=== PATIENT | female | born 1930 | race Hispanic/Latino ===

== ENCOUNTER 2020-03-24 23:08 | Emergency (ER) | payer MEDICARE ==
[~2020-03-24] VITALS: Ht 160 cm; Wt 59.9 kg
[~2020-03-24 23:08] MED LIST: COZAAR25 MG PO; DICYCLOMINE HCL10 MG PO; LOMOTIL TABLET1 EACH PO; LOTRONEX0.5 MG PO; TIROSINT100 MCG PO
--- NOTE | 2020-03-25 00:04 | Diagnostic Imaging Report ---
EXAMINATION: Head CT HISTORY: Status post fall, trauma, pain COMPARISON: None. TECHNIQUE: Helical axial images of the head were obtained. Reformatted coronal and sagittal images from the axial data. Dose modulation, iterative reconstruction, and/or weight based adjustment of the mA/kV was utilized to reduce the radiation dose to as low as reasonably achievable. Image quality: Motion/streaking artifact limits the evaluation of the skull base and posterior cranial fossa. FINDINGS: Parenchyma: 1. Mild periventricular white matter hypodensities, most nonspecific chronic microvascular ischemic changes. 2. No mass or hemorrhage. No CT evidence of acute territorial vascular insult. Extra-axial spaces:No abnormal density. No extra-axial fluid collections Brain volume: Normal for age. Ventricles: No hydrocephalus or displacement. Arteries: No density suggestive of thrombus. Dural sinuses: No abnormal density. Foramen magnum: No mass, Chiari malformation, or basilar invagination. Sella: No obvious mass. Paranasal/mastoid sinuses: Imaged portions unremarkable. Skull/Scalp: No lytic or blastic lesions. Minimal right forehead soft tissue swelling, no underlying fractures. Partially visualized radiopaque densities in the bilateral lateral globes. IMPRESSION: 1. No acute post traumatic intracranial abnormality, particularly no hemorrhage. 2. Mild white matter chronic microvascular ischemic changes. 3. Minimal right forehead soft tissue swelling without underlying fractures Signed by: Dr. Fany Rosario M.D. on 03/25/2020 12:01 AM
--- NOTE | 2020-03-25 00:15 | Emergency Department Note ---
History of Present Illnes History of Present Illness Chief Complaint: Head/Face Trauma History of Present Illness This is a 89 year old female states she tripped and fell while using her walker at home. Patient denies losing consiousness or being on blood thinners at this time. Patient noted to have laceration to her nose and swelling to lip. No distress noted. No active bleeding at this time. . Historian: Patient Arrival Mode: Car Onset (how long ago): hour(s) (1) Location: face, right knee Quality: fell, laceration to nose, abrasion to right knee Radiation: Reports non-radiation Severity: moderate Onset quality: sudden Duration (how long): hour(s) (1) Timing of current episode: constant Progression: unchanged Chronicity: new Context: Reports trauma/injury (tripped and fell) Relieving factors: none Exacerbating factors: none Associated symptoms: Reports denies other symptoms Treatments prior to arrival: none Past Medical/Family History Physician Review I have reviewed the patient's past medical and family history. Any updates have been documented here. Past Medical History Recent Fever: No Clinical Suspicion of Infectio: No New/Unexplained Change in Ment: No Past Medical History: Hypertension, Hyperlipedemia Other Medical History: SPINAL STENOSIS diverticulitis, ibs neuropathy Other Surgery: abdominal mesh x 3 Social History Smoking Cessation: Never Smoker Counseling Performed: Yes Any Illegal Drug Use: No Family History Family history of heart diseas: No Other family history htn Other Last Tetanus: utd Review of Systems Review of Systems Constitutional: Reports no symptoms EENTM: Reports no symptoms Cardiovascular: Reports no symptoms Respiratory: Reports no symptoms Gastrointestinal: Reports no symptoms Genitourinary: Reports no symptoms Musculoskeletal: Reports as per HPI Integumentary: Reports as per HPI Neurological: Reports no symptoms Psychological: Reports no symptoms Endocrine: Reports no symptoms Hematological/Lymphatic: Reports no symptoms Physical Exam Related Data Allergies: Coded Allergies: Penicillins (Verified Allergy, Severe, 05/07/08) Sulfa (Sulfonamide Antibiotics) (Verified Allergy, Severe, 05/07/08) nitrofurantoin (Verified Allergy, Severe, 05/07/08) levofloxacin (Verified Allergy, Intermediate, 06/15/17) acetaminophen (Verified Allergy, Mild, 05/07/08) hydrocodone (Verified Allergy, Mild, 05/07/08) Triage Vital Signs Vital Signs Date Time Temp Pulse Resp B/P (MAP) Pulse Ox O2 Delivery O2 Flow Rate FiO2 03/24/20 23:31 98.1 82 20 176/75 100 Room Air Vital signs reviewed: Yes Physical Exam CONSTITUTIONAL Constitutional: Present well-developed, Present well-nourished; Absent distressed HENT HENT: Present normocephalic, Present oropharynx clear/moist, Present nose normal, Present other (contusion to right forehead and upper lip) HENT L/R: Present left ext ear normal, Present right ext ear normal EYES Eyes: Reports PERRL, Reports conjunctivae normal NECK Neck: Present ROM normal PULMONARY Pulmonary: Present effort normal, Present breath sounds normal CARDIOVASCULAR Cardiovascular: Present regular rhythm, Present heart sounds normal, Present capillary refill normal, Present normal rate GASTROINTESTINAL Abdominal: Present soft, Present nontender, Present bowel sounds normal GENITOURINARY Genitourinary: Present exam deferred SKIN Skin: Present warm, Present dry, Present other (superficial laceration to bridge of nose, 1 cm in length, ) MUSCULOSKELETAL Musculoskeletal: Present ROM normal, Present other (abraions to right knee, mild swelling, rom normal) NEUROLOGICAL Neurological: Present alert, Present oriented x 3, Present no gross motor or sensory deficits PSYCHOLOGICAL Psychological: Present mood/affect normal, Present judgement normal Results Imaging Imaging results reviewed: Yes Impressions Procedure: [id number] CT/CT MAX FAC/PARANAS WO Exam Date: 03/24/20 Exam Time: 2340 REPORT STATUS: Signed EXAMINATION: CT of the face HISTORY: Status post fall, facial trauma, pain. COMPARISON: None available TECHNIQUE: Multidetector helical axial images were acquired through the face without contrast and were reconstructed in bone and soft tissue algorithms. Images were viewed in multiplanar format. Dose modulation, iterative reconstruction, and/or weight based adjustment of the mA/kV was utilized to reduce the radiation dose to as low as reasonably achievable. FINDINGS: Bones: No acute displaced fractures Facial soft tissues: Mild right forehead soft tissue swelling Paranasal sinuses and drainage pathways: The frontal, ethmoidal, sphenoid and maxillary sinuses are clear. The ostiomeatal units, fronto-nasal and spheno-ethmoidal recesses are clear. Orbits contents: Small calcifications in the lateral aspect of both globes may represent senile scleral calcifications. Nasal septum: Midline. Anatomic variations: No significant anatomic variations. Dentition: No acute abnormality of the visualized teeth. IMPRESSION: No acute facial fractures. Signed by: Dr. Fany Groves M.D. on 03/25/2020 12:17 AM Procedure: [id number] CT/CT BRAIN WO Exam Date: 03/24/20 Exam Time: 2339 REPORT STATUS: Signed EXAMINATION: Head CT HISTORY: Status post fall, trauma, pain COMPARISON: None. TECHNIQUE: Helical axial images of the head were obtained. Reformatted coronal and sagittal images from the axial data. Dose modulation, iterative reconstruction, and/or weight based adjustment of the mA/kV was utilized to reduce the radiation dose to as low as reasonably achievable. Image quality: Motion/streaking artifact limits the evaluation of the skull base and posterior cranial fossa. FINDINGS: Parenchyma: 1. Mild periventricular white matter hypodensities, most nonspecific chronic microvascular ischemic changes. 2. No mass or hemorrhage. No CT evidence of acute territorial vascular insult. Extra-axial spaces:No abnormal density. No extra-axial fluid collections Brain volume: Normal for age. Ventricles: No hydrocephalus or displacement. Arteries: No density suggestive of thrombus. Dural sinuses: No abnormal density. Foramen magnum: No mass, Chiari malformation, or basilar invagination. Sella: No obvious mass. Paranasal/mastoid sinuses: Imaged portions unremarkable. Skull/Scalp: No lytic or blastic lesions. Minimal right forehead soft tissue swelling, no underlying fractures. Partially visualized radiopaque densities in the bilateral lateral globes. IMPRESSION: 1. No acute post traumatic intracranial abnormality, particularly no hemorrhage. 2. Mild white matter chronic microvascular ischemic changes. 3. Minimal right forehead soft tissue swelling without underlying fractures Signed by: Dr. Fany Groves M.D. on 03/25/2020 12:01 AM Dictated By: FANY GROVES MD 0001 Transcribed By: ADRIANO on 03/25/20 0001 COPY TO: LORE CORONADO MD~ Procedure: [id number] CT/CT CERVICAL SPINE WO Exam Date: 03/24/20 Exam Time: 2339 REPORT STATUS: Signed EXAMINATION: CT of the cervical spine HISTORY: Status post fall, pain COMPARISON: None available TECHNIQUE: Multidetector helical axial images were obtained without contrast from the foramen magnum to T1. The images were reconstructed using bone and soft tissue algorithms and were viewed in axial, sagittal and coronal planes. Dose modulation, iterative reconstruction, and/or weight based adjustment of the mA/kV was utilized to reduce the radiation dose to as low as reasonably achievable. FINDINGS: Alignment: Normal alignment and lordosis Soft tissues: Normal Vertebrae: Normal height and density. No acute fracture, infection or neoplasm Degenerative changes: C1-C2: Ossification of the atlantodental ligaments, no significant stenosis. C2-C3: Bilateral facet arthrosis C3-C4: Prominent facet arthrosis mainly on the left. Moderate left foraminal stenosis. C4-C5: Prominent facet arthrosis and mild uncovertebral arthrosis on the left. Moderate left foraminal stenosis. C5-C6: Disc osteophyte complex formation, bilateral uncovertebral and facet arthrosis worse on the left. Moderate right and severe left foraminal stenosis minimal canal narrowing. C6-C7: Fusion of the posterior elements on the left. No significant canal or foraminal stenosis. C7-T1: Fusion of the posterior elements of the lumbar. No significant stenosis. IMPRESSION: 1. No acute cervical spine postraumatic abnormalities. 2. Multilevel chronic degenerative changes of the tube above. Note: Acute postraumatic spinal cord, vascular or ligamentous injuries cannot adequately be assessed by CT. Signed by: Dr. Fany Groves M.D. on 03/25/2020 12:23 AM Dictated By: FANY GROVES MD Transcribed By: ADRIANO on 03/25/2022 COPY TO: LORE CORONADO MD~ Procedures Laceration Laceration: Laceration 1 Site: face (nose) Size (cm): 1 Description: linear Depth: simple, single layer Local anesthesia: lidocaine 1% Amount of anesthesia (mL): 1 Pre-repair: wound exposed, irrigated extensively, deep structures intact Skin layer closed with: other (prolene) Size (cm): 4-0 Technique: simple, interrupted Assessment & Plan Medical Decision Making [facility] pt s/p fall with injury to face and right knee ct brain, ct cervical spine, ct face, right knee xray ordered to eval for fractures, intracranial abnormality/injury laceration of nose repaired pt discharge home, motrin/tylenol for pain have sutures removed in 10 days Assessment & Plan Final Impression: (1) Contusion of head (2) Contusion, lip (3) Laceration of nose (4) Abrasion of right knee Depart Disposition: HOME, SELF-CARE Last Vital Signs Date Time Temp Pulse Resp B/P (MAP) Pulse Ox O2 Delivery O2 Flow Rate FiO2 03/24/20 23:31 98.1 82 20 176/75 100 Room Air Home Meds Reported Medications Losartan Potassium (COZAAR) 25 Mg Tablet, 1 TAB PO DAILY 11/25/12 Levothyroxine Sodium (TIROSINT) 100 Mcg Capsule, 1 TAB PO DAILY 11/25/12 Diphenoxylate Hcl/Atropine (LOMOTIL TABLET) 1 Each Tablet, 1 TAB PO TID 11/25/12 Dicyclomine Hcl (DICYCLOMINE HCL) 10 Mg Capsule, 1 TAB PO TID 11/25/12 LORE CORONADO MD Mar 25, 2020 00:14
--- NOTE | 2020-03-25 00:20 | Diagnostic Imaging Report ---
EXAMINATION: CT of the face HISTORY: Status post fall, facial trauma, pain. COMPARISON: None available TECHNIQUE: Multidetector helical axial images were acquired through the face without contrast and were reconstructed in bone and soft tissue algorithms. Images were viewed in multiplanar format. Dose modulation, iterative reconstruction, and/or weight based adjustment of the mA/kV was utilized to reduce the radiation dose to as low as reasonably achievable. FINDINGS: Bones: No acute displaced fractures Facial soft tissues: Mild right forehead soft tissue swelling Paranasal sinuses and drainage pathways: The frontal, ethmoidal, sphenoid and maxillary sinuses are clear. The ostiomeatal units, fronto-nasal and spheno-ethmoidal recesses are clear. Orbits contents: Small calcifications in the lateral aspect of both globes may represent senile scleral calcifications. Nasal septum: Midline. Anatomic variations: No significant anatomic variations. Dentition: No acute abnormality of the visualized teeth. IMPRESSION: No acute facial fractures. Signed by: Dr. Fany Rosario M.D. on 03/25/2020 12:17 AM
--- NOTE | 2020-03-25 00:27 | Diagnostic Imaging Report ---
EXAMINATION: CT of the cervical spine HISTORY: Status post fall, pain COMPARISON: None available TECHNIQUE: Multidetector helical axial images were obtained without contrast from the foramen magnum to T1. The images were reconstructed using bone and soft tissue algorithms and were viewed in axial, sagittal and coronal planes. Dose modulation, iterative reconstruction, and/or weight based adjustment of the mA/kV was utilized to reduce the radiation dose to as low as reasonably achievable. FINDINGS: Alignment: Normal alignment and lordosis Soft tissues: Normal Vertebrae: Normal height and density. No acute fracture, infection or neoplasm Degenerative changes: C1-C2: Ossification of the atlantodental ligaments, no significant stenosis. C2-C3: Bilateral facet arthrosis C3-C4: Prominent facet arthrosis mainly on the left. Moderate left foraminal stenosis. C4-C5: Prominent facet arthrosis and mild uncovertebral arthrosis on the left. Moderate left foraminal stenosis. C5-C6: Disc osteophyte complex formation, bilateral uncovertebral and facet arthrosis worse on the left. Moderate right and severe left foraminal stenosis minimal canal narrowing. C6-C7: Fusion of the posterior elements on the left. No significant canal or foraminal stenosis. C7-T1: Fusion of the posterior elements of the lumbar. No significant stenosis. IMPRESSION: 1. No acute cervical spine postraumatic abnormalities. 2. Multilevel chronic degenerative changes of the tube above. Note: Acute postraumatic spinal cord, vascular or ligamentous injuries cannot adequately be assessed by CT. Signed by: Dr. Fany Rosario M.D. on 03/25/2020 12:23 AM
[2020-03-25] MEDS ORDERED: LIDOCAINE 1% 5ML-MPF INJ ONE (00:45)
[2020-03-25] MEDS ORDERED: LIDOCAINE HCL 1% LOCAL INJ 20 ML VIAL ONE (00:49)
[2020-03-25] MEDS ORDERED: BACITRACIN ZINC 0.9GM TP ONE (01:00)
--- NOTE | 2020-03-25 01:09 | Diagnostic Imaging Report ---
X-ray right knee 3 views HISTORY: Pain. Fall COMPARISON: None available. FINDINGS: Bones: No acute displaced fracture. Osseous alignment is within normal limits. Total right knee metallic arthroplasty hardware intact. Joints: The joint spaces are well-maintained. Soft tissues: Mild subcutaneous edema about the knee. Vascular calcifications. IMPRESSION: No acute radiographic osseous abnormality. Mild subcutaneous edema about the knee. Total right knee metallic arthroplasty hardware intact. Signed by: Edvin Martinez DO on 03/25/2020 1:06 AM
[2020-03-25 01:11] VITALS: BP 152/81
--- OUTSIDE RECORDS SUMMARY | 2020-03-27 19:22 | XMS REPORT ---
Author Author Shanique Morelos Organization [employer] Address Unknown Phone Unavailable Care Team Providers Care Optometrist/Practice Owner Name Role Phone Anju Morelos Unavailable Allergies, Adverse Reactions, Alerts Substance Reaction Event Type MICRODASTIN Info Not Available Non Drug Allergy SULFA DRUGS Info Not Available Non Drug Allergy PNC Info Not Available Non Drug Allergy Problems Problem Type Condition Code Onset Dates Condition Statu s Assessment Mixed hyperlipidemia E78.2 Active Assessment Annual physical exam Z00.00 Active Assessment Essential hypertension I10 Activ e Problem Mixed hyperlipidemia E78.2 Active Problem Essential hypertension I10 Activ e Problem Arthritis M19.90 Active Problem Other irritable bowel syndrome K58.8 Active Problem 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 Active Problem Acquired hypothyroidism E03.9 Acti ve Problem Gastroesophageal reflux disease without esophagitis K2 1.9 Active Assessment Arthritis M19.90 Active Assessment Other irritable bowel syndrome K58.8 Active Assessment 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 Assessment Acquired hypothyroidism E03.9 Acti ve Assessment Gastroesophageal reflux disease without esophagitis K2 1.9 Active Medications Medication Code System Code Instructions Start Date End Date Status Dosage Gabapentin ND 14750955283 300 MG Orally Once a day Active 1 capsule Levothyroxine Sodium ND 37939853605 88 MCG Orally daily Active 1 tablet Rosuvastatin Calcium ND 91503614884 20 MG Orally Once a day Active 1 tablet Bentyl ND 67745171791 10 MG Orally Four times a day Active 2 capsules Calcium & Magnesium Carbonates NDC 0 A ctive not defined Vitamin E ND 70612571950 100 UNIT Orally Once a day Active 1 capsule Losartan Potassium ND 23144115736 25 MG Orally Once a day Active 1 tablet Flexeril NDC 0 10 MG Orally daily Active 1 ta blet as needed B Complete ND 64329984199 - Orally Active not def ined Vital Signs Date/Time: May 02, 2018 BMI 25.56 Index Weight 144.3 lbs Height 63 in Temperature 97.2 F Cardiac Monitoring Heart Rate 82 /min Blood Pressure Diastolic 78 mm Hg Blood Pressure Systolic 161 mm Hg Results No Known Results Summary Purpose [employer] Submission
--- OUTSIDE RECORDS SUMMARY | 2020-03-27 19:22 | XMS REPORT ---
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 Problem Other insomnia G47.09 Active Problem Stress incontinence of urine N39.3 Active Problem Renal calculus, right N20.0 Active Problem Generalized abdominal pain R10.84 A ctive Problem Mixed hyperlipidemia E78.2 Active Problem Arthritis M19.90 Active Assessment Essential hypertension I10 Activ e Problem Other irritable bowel syndrome K58.8 Active Problem Gastroesophageal reflux disease without esophagitis K2 1.9 Active Medications Medication Code System Code Instructions Start Date End Date Status Dosage Losartan Potassium [facility] 25809690667 25 MG Orally Once a day Active 1 tablet Results No Known Results Summary Purpose [employer] Submission
--- OUTSIDE RECORDS SUMMARY | 2020-03-27 19:22 | XMS REPORT ---
Author Author Shanique Morelos Organization [employer] Address Unknown Phone Unavailable Care Team Providers Care Income Tax Return Preparer Name Role Phone Jethro Anju Unavailable Allergies, Adverse Reactions, Alerts Substance Reaction Event Type PNC Info Not Available Non Drug Allergy MICRODASTIN Info Not Available Non Drug Allergy SULFA DRUGS Info Not Available Non Drug Allergy Problems Problem Type Condition Code Onset Dates Condition Statu s Problem Gastroesophageal reflux disease without esophagitis K2 1.9 Active Problem Essential hypertension I10 Activ e Problem Acquired hypothyroidism E03.9 Acti ve Problem Renal calculus, right N20.0 Active Assessment Arthritis M19.90 Active Problem Generalized abdominal pain R10.84 A ctive Assessment Acquired hypothyroidism E03.9 Acti ve Assessment Stress incontinence of urine N39.3 Active Problem Fatty liver K76.0 Active Problem Arthritis M19.90 Active Problem Mixed hyperlipidemia E78.2 Active Problem Other insomnia G47.09 Active Problem Stress incontinence of urine N39.3 Active Assessment Mixed hyperlipidemia E78.2 Active Assessment Essential hypertension I10 Activ e Assessment Renal calculus, right N20.0 Active Assessment 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 Assessment Gastroesophageal reflux disease without esophagitis K2 1.9 Active Assessment Fatty liver K76.0 Active Problem 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 Active Assessment Other irritable bowel syndrome K58.8 Active Problem Other irritable bowel syndrome K58.8 Active Medications Medication Code System Code Instructions Start Date End Date Status Dosage Flexeril NDC 0 10 MG Orally daily Active 1 ta blet as needed Bentyl ND 03506104633 10 MG Orally Four times a day Active 2 capsules Oxybutynin Chloride ER ND 10933172804 5 MG Orally Once a day Active 1 tablet Rosuvastatin Calcium ND 58051204983 10 MG Orally Once a day Active 1 tablet B Complete ND 68212054740 - Orally Active not def ined Vitamin E ND 25887350479 100 UNIT Orally Once a day Active 1 capsule Losartan Potassium ND 64837078552 25 MG Orally Once a day Active 1 tablet Gabapentin ND 44516554361 300 MG Orally three times a day (tid) Active 1 capsule Levothyroxine Sodium [facility] 79848169149 88 MCG Orally daily Active 1 tablet Calcium & Magnesium Carbonates NDC 0 A ctive not defined Pantoprazole Sodium [facility] 00740743441 40 mg Orally Once a day Aug 06, 2018 Active 1 tablet Vital Signs Date/Time: Aug 06, 2018 BMI 26.78 Index Weight 151.2 lbs Height 63 in Temperature 98.4 F Cardiac Monitoring Heart Rate 86 /min Blood Pressure Diastolic 71 mm Hg Blood Pressure Systolic 125 mm Hg Results No Known Results Summary Purpose [employer] Submission
--- OUTSIDE RECORDS SUMMARY | 2020-03-27 19:22 | XMS REPORT ---
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 Active Assessment Arthritis M19.90 Active Problem Other insomnia G47.09 Active Problem Stress incontinence of urine N39.3 Active Problem Renal calculus, right N20.0 Active Problem Generalized abdominal pain R10.84 A ctive Assessment Gastroesophageal reflux disease without esophagitis K2 1.9 Active Assessment Essential hypertension I10 Activ e Assessment Fatty liver K76.0 Active Assessment Other irritable bowel syndrome K58.8 Active Problem Mixed hyperlipidemia E78.2 Active Problem Arthritis M19.90 Active Assessment Acquired hypothyroidism E03.9 Acti ve Medications Medication Code System Code Instructions Start Date End Date Status Dosage Pregabalin NDC 46141009108 50 mg Orally once every night Sep 02 0 Active 1 capsule Vitamin E NDC 49840266572 100 UNIT Orally Once a day Active 1 capsule Lidocaine HCl NDC 0 5 % Externally Twice a day as needed Active as directed Aleve NDC 06667205057 220 MG Orally every 12 hrs A ctive 1 tablet with food or milk as needed Losartan Potassium ND 95887145658 25 MG Orally Once a day Active 1 tablet Rosuvastatin Calcium ND 58604971316 10 MG Orally Once a day Active 1 tablet B Complete [facility] 66628607747 - Orally Active not def ined Pantoprazole Sodium ND 93628344621 40 mg Orally Once a day Active 1 tablet Myrbetriq ND 67309103134 50 MG Orally Once a day January 29, 2020 Mar 29, 2020 Active 1 tablet Bentyl [facility] 99143511413 10 MG Orally Four times a day Active 2 capsules Calcium & Magnesium Carbonates NDC 0 A ctive not defined Levothyroxine Sodium ND 78635073608 88 MCG Orally daily Active 1 tablet Flexeril NDC 0 10 MG Orally daily Active 1 ta blet as needed Vital Signs Date/Time: March 18, 2020 BMI 23.95 Index Weight 135.2 lbs Height 63 in Temperature 97.0 F Cardiac Monitoring Heart Rate 70 /min Blood Pressure Diastolic 78 mm Hg Blood Pressure Systolic 135 mm Hg Results No Known Results Summary Purpose [employer] Submission
--- OUTSIDE RECORDS SUMMARY | 2020-03-27 19:22 | XMS REPORT ---
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 Active Assessment Stress incontinence of urine N39.3 Active Problem Other insomnia G47.09 Active Problem Stress incontinence of urine N39.3 Active Problem Renal calculus, right N20.0 Active Problem Generalized abdominal pain R10.84 A ctive Assessment Essential hypertension I10 Activ e Assessment Other insomnia G47.09 Active Assessment Other irritable bowel syndrome K58.8 Active Assessment Gastroesophageal reflux disease without esophagitis K2 1.9 Active Problem Mixed hyperlipidemia E78.2 Active Problem Arthritis M19.90 Active Assessment Acquired hypothyroidism E03.9 Acti ve Medications Medication Code System Code Instructions Start Date End Date Status Dosage Aleve NDC 44466138760 220 MG Orally every 12 hrs A ctive 1 tablet with food or milk as needed Trazodone HCl NDC 21650462962 50 MG Orally once every nig ht as needed Sep 12, 2019 Active 1 tablet at bedtime as needed Levothyroxine Sodium ND 95100067922 75 MCG Orally daily Active 1 tablet Oxybutynin Chloride ER [facility] 99209248219 5 MG Orally Once a day Active 1 tablet Pregabalin [facility] 74848203576 50 mg Orally once every night Sep 02 0 Active 1 capsule Bentyl [facility] 32707529929 10 MG Orally Four times a day Active 2 capsules Vitamin E [facility] 91623860488 100 UNIT Orally Once a day Active 1 capsule Rosuvastatin Calcium ND 41831085151 10 MG Orally Once a day Active 1 tablet Losartan Potassium [facility] 78710436623 25 MG Orally Once a day Active 1 tablet Pantoprazole Sodium [facility] 61527883850 40 mg Orally Once a day Active 1 tablet B Complete [facility] 96963085392 - Orally Active not def ined Calcium & Magnesium Carbonates NDC 0 A ctive not defined Flexeril NDC 0 10 MG Orally daily Active 1 ta blet as needed Vital Signs Date/Time: Sep 12, 2019 BMI 24.58 Index Weight 138.8 lbs Height 63 in Temperature 98.2 F Cardiac Monitoring Heart Rate 97 /min Blood Pressure Diastolic 74 mm Hg Blood Pressure Systolic 146 mm Hg Results No Known Results Summary Purpose [employer] Submission
--- OUTSIDE RECORDS SUMMARY | 2020-03-27 19:22 | XMS REPORT ---
Author Author Shanique Morelos Organization [employer] Address Unknown Phone Unavailable Care Team Providers Care Production Internship Name Role Phone Jethro Anju CP Unavailable Allergies, Adverse Reactions, Alerts Substance Reaction [...] Problem Renal calculus, right N20.0 Active Assessment Mixed hyperlipidemia E78.2 Active Problem Generalized abdominal pain R10.84 A ctive Assessment Acquired hypothyroidism E03.9 Acti ve Assessment Stress incontinence of urine N39.3 Active Problem Fatty liver K76.0 Active Problem Arthritis M19.90 Active Problem Mixed hyperlipidemia E78.2 Active Problem Other insomnia G47.09 Active Problem Stress incontinence of urine N39.3 Active Assessment Gastroesophageal reflux disease without esophagitis K2 1.9 Active Assessment Essential hypertension I10 Activ e Assessment Fatty liver K76.0 Active Assessment Other irritable bowel syndrome K58.8 Active Assessment Dizziness R42 Active Assessment Arthritis M19.90 Active Problem 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 Active Assessment 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 Problem Other irritable bowel syndrome K58.8 Active Medications Medication Code System Code Instructions Start Date End Date Status Dosage Meclizine HCl [facility] 61859922244 25 MG Orally thr ee times a day (tid) as needed (prn) Apr 22, 2019 Active 1 tablet Oxybutynin Chloride ER ND 79762660400 5 MG Orally Once a day Active 1 tablet Flexeril NDC 0 10 MG Orally daily Active 1 ta blet as needed B Complete ND 43010311287 - Orally Active not def ined Rosuvastatin Calcium ND 38107285591 10 MG Orally Once a day Active 1 tablet Meloxicam ND 93752285578 15 MG Orally Once a day Apr 22, 2019 S ept 2018 Active 1 tablet Levothyroxine Sodium ND 34874676693 88 MCG Orally daily Active 1 tablet Losartan Potassium ND 93831213193 25 MG Orally Once a day Active 1 tablet Rosuvastatin Calcium ND 48478449354 10 MG Orally Once a day Active 1 tablet Vitamin E ND 82371700437 100 UNIT Orally Once a day Active 1 capsule Losartan Potassium [facility] 65342928093 25 MG Orally Once a day Active 1 tablet Pantoprazole Sodium [facility] 94200856251 40 mg Orally Once a day Active 1 tablet Bentyl [facility] 34850952531 10 MG Orally Four times a day Active 2 capsules Calcium & Magnesium Carbonates ND 0 A ctive not defined Vital Signs Date/Time: Apr 22, 2019 BMI 24.66 Index Weight 139.2 lbs Height 63 in Temperature 98.0 F Cardiac Monitoring Heart Rate 109 /min Blood Pressure Diastolic 72 mm Hg Blood Pressure Systolic 117 mm Hg Results No Known Results Summary Purpose [employer] Submission
--- OUTSIDE RECORDS SUMMARY | 2020-03-27 19:22 | XMS REPORT ---
Author Author Shanique Morelos Organization [employer] Address Unknown Phone Unavailable Care Team Providers Care Lapidarist Name Role Phone Jethro Anju Unavailable Allergies, Adverse Reactions, Alerts Substance Reaction Event Type MICRODASTIN Info Not Available Non Drug Allergy SULFA DRUGS Info Not Available Non Drug Allergy PNC Info Not Available Non Drug Allergy Problems Problem Type Condition Code Onset Dates Condition Statu s Problem Other irritable bowel syndrome K58.8 Active Problem Acquired hypothyroidism E03.9 Acti ve Problem Gastroesophageal reflux disease without esophagitis K2 1.9 Active Problem Stress incontinence of urine N39.3 Active Problem Other insomnia G47.09 Active Problem Generalized abdominal pain R10.84 A ctive Problem Mixed hyperlipidemia E78.2 Active Problem Essential hypertension I10 Activ e Problem 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 Active Problem Arthritis M19.90 Active Assessment Arthritis M19.90 Active Assessment Generalized abdominal pain R10.84 A ctive Assessment Stress incontinence of urine N39.3 Active Assessment Acquired hypothyroidism E03.9 Acti ve Assessment Gastroesophageal reflux disease without esophagitis K2 1.9 Active Assessment Mixed hyperlipidemia E78.2 Active Assessment Other irritable bowel syndrome K58.8 Active Assessment Essential hypertension I10 Activ e Assessment 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 Medications Medication Code System Code Instructions Start Date End Date Status Dosage Trazodone HCl ND 65849915389 50 mg Orally once every nig ht as needed May 07, 2018 Active 1 tablet at bedtime as needed Calcium & Magnesium Carbonates NDC 0 A ctive not defined Losartan Potassium ND 47453030005 25 MG Orally Once a day Active 1 tablet Rosuvastatin Calcium ND 39551206005 10 MG Orally Once a day Active 1 tablet B Complete ND 82141698497 - Orally Active not def ined Vitamin E ND 94598778909 100 UNIT Orally Once a day Active 1 capsule Gabapentin ND 73642944825 300 MG Orally Once a day Active 1 capsule Oxybutynin Chloride ER ND 13873611255 5 MG Orally Once a day Jul 02, 2018 December 29, 2018 Active 1 tablet Levothyroxine Sodium [facility] 81365211129 88 MCG Orally daily Active 1 tablet Bentyl [facility] 61974494661 10 MG Orally Four times a day Active 2 capsules Flexeril NDC 0 10 MG Orally daily Active 1 ta blet as needed Vital Signs Date/Time: Jul 02, 2018 BMI 26.13 Index Weight 147.5 lbs Height 63 in Temperature 97.7 F Cardiac Monitoring Heart Rate 106 /min Blood Pressure Diastolic 70 mm Hg Blood Pressure Systolic 116 mm Hg Results No Known Results Summary Purpose [employer] Submission
--- OUTSIDE RECORDS SUMMARY | 2020-03-27 19:22 | XMS REPORT ---
Author Author Shanique Morelos Organization [employer] Address Unknown Phone Unavailable Care Team Providers Care Rubber Goods Tester Water Name Role Phone Anju Morelos Unavailable Allergies, Adverse Reactions, Alerts Substance Reaction Event Type MICRODASTIN Info Not Available Non Drug Allergy SULFA DRUGS Info Not Available Non Drug Allergy PNC Info Not Available Non Drug Allergy Problems Problem Type Condition Code Onset Dates Condition Statu s Assessment Essential hypertension I10 Activ e Problem Gastroesophageal reflux disease without esophagitis K2 1.9 Active Problem Other irritable bowel syndrome K58.8 Active Problem Stress incontinence of urine N39.3 Active Problem 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 Active Problem Other insomnia G47.09 Active Problem Essential hypertension I10 Activ e Problem Acquired hypothyroidism E03.9 Acti ve Problem Arthritis M19.90 Active Problem Mixed hyperlipidemia E78.2 Active Assessment Stress incontinence of urine N39.3 Active Assessment Other insomnia G47.09 Active Assessment Other irritable bowel syndrome K58.8 Active Assessment 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 Assessment Acquired hypothyroidism E03.9 Acti ve Assessment Gastroesophageal reflux disease without esophagitis K2 1.9 Active Assessment Arthritis M19.90 Active Assessment Mixed hyperlipidemia E78.2 Active Medications Medication Code System Code Instructions Start Date End Date Status Dosage Calcium & Magnesium Carbonates NDC 0 A ctive not defined Bentyl ND 62294224084 10 MG Orally Four times a day Active 2 capsules Flexeril NDC 0 10 MG Orally daily Active 1 ta blet as needed Trazodone HCl ND 12632010326 50 mg Orally once every nig ht as needed May 07, 2018 Active 1 tablet at bedtime as needed Rosuvastatin Calcium ND 40399332121 10 MG Orally Once a day Active 1 tablet Levothyroxine Sodium ND 21677970813 88 MCG Orally daily Active 1 tablet B Complete ND 08317929229 - Orally Active not def ined Vitamin E ND 51690704160 100 UNIT Orally Once a day Active 1 capsule Oxybutynin Chloride ER [facility] 10034564556 5 MG Orally Once a day May 07, 2018 Jun 06, 2018 Active 1 tablet Losartan Potassium [facility] 07905778423 25 MG Orally Once a day Active [address] [facility] 52726828192 300 MG Orally Once a day Active 1 capsule Vital Signs Date/Time: May 07, 2018 BMI 25.74 Index Weight 145.3 lbs Height 63 in Temperature 98.2 F Cardiac Monitoring Heart Rate 94 /min Blood Pressure Diastolic 73 mm Hg Blood Pressure Systolic 148 mm Hg Results No Known Results Summary Purpose [employer] Submission
--- OUTSIDE RECORDS SUMMARY | 2020-03-27 19:22 | XMS REPORT ---
Author Author Shanique Morelos Organization [employer] Address Unknown Phone Unavailable Care Team Providers Care Rehabilitation Team Lead Name Role Phone Anju Morelos Unavailable Allergies, [...] Instructions Start Date End Date Status Dosage Levothyroxine Sodium [facility] 87966922538 75 MCG Orally daily Active 1 tablet Losartan Potassium [facility] 21260349788 25 MG Orally Once a day Active 1 tablet Rosuvastatin Calcium ND 28588774747 10 MG Orally Once a day Active 1 tablet Pantoprazole Sodium [facility] 89828017393 40 mg Orally Once a day Active 1 tablet Oxybutynin Chloride ER ND 09466816956 5 MG Orally Once a day Active 1 tablet B Complete ND 73128991808 - Orally Active not def ined Flexeril NDC 0 10 MG Orally daily Active 1 ta blet as needed Aleve NDC 59534414514 220 MG Orally every 12 hrs A ctive 1 tablet with food or milk as needed Bentyl ND 98281101041 10 MG Orally Four times a day Active 2 capsules Levothyroxine Sodium ND 21452919306 88 MCG Orally daily Active 1 tablet Myrbetriq ND 15638139793 50 MG Orally Once a day January 29, 2020 Mar 29, 2020 Active 1 tablet Calcium & Magnesium Carbonates NDC 0 A ctive not defined Lidocaine HCl NDC 0 5 % Externally Twice a day as needed January 29, 2020 Active as directed Tramadol HCl ND 35691949442 50 MG Orally twice a day (bi d) as needed (prn) January 29, 2020 February 08, 2020 Active 1 tablet as needed Vitamin E ND 15351029833 100 UNIT Orally Once a day Active 1 capsule Pregabalin [facility] 38369257654 50 mg Orally once every night Sep 02 0 Active 1 capsule Vital Signs Date/Time: January 29, 2020 BMI 23.82 Index Weight 134.5 lbs Height 63 in Temperature 97.5 F Cardiac Monitoring Heart Rate 106 /min Blood Pressure Diastolic 71 mm Hg Blood Pressure Systolic 147 mm Hg Results No Known Results Summary Purpose [employer] Submission
--- OUTSIDE RECORDS SUMMARY | 2020-03-27 19:22 | XMS REPORT | Clinical Summary ---
Author Author [facility] Organization [place] [facility] Address Unknown Phone Unavailable Care Team Providers Care Extension Educator Name Role Phone Anju Morelos MD PCP Allergies Comments Active Allergy Reactions Severity Noted Date Nitrofurantoin Hives 02/12/2018 Macrocrystal Penicillins Hives 06/07/2016 Sulfa (Sulfonamide Hives 06/07/2016 Antibiotics) Medications End Date Status Medication Sig Dispensed Refills Start Date Active cyclobenzaprine Take 20 mg by 0 (FLEXERIL) 10 mg tablet mouth as needed for muscle spasms. Active MULTIVITAMIN ORAL Take by mouth 0 daily. Active GLUCOSAMINE HCL/CHONDR GRAHAM Take 1 tablet 0 A NA (OSTEO BI-FLEX ORAL) by mouth daily. Active TURMERIC (CURCUMIN MISC) 500 mg daily. 0 Active nd-1-hol-epa-fish oil-vit Take 1 tablet 0 D3 (FISH OIL-VIT D3) by mouth 300-1,000-1,000 daily. mg-mg-unit capsule Active dicyclomine (BENTYL) 10 Take 10 mg by 0 MG capsule mouth daily. Active diphenoxylate-atropine Take 1 tablet 0 (LOMOTIL) 2.5-0.025 mg by mouth as per tablet needed for diarrhea. Active magnesium oxide (MAG-OX) Take 400 mg 0 400 mg tablet by mouth daily. Active vit Place under 0 B2/niacin/B6/B12/dexpanth the tongue (B COMPLEX SL) daily. Active alpha tocopherol (VITAMIN Take 1 0 E) 400 unit capsule capsule by capsule mouth daily. Active lidocaine HCl Apply 0 (ASPERCREME, LIDOCAINE,) topically 4 % cream nightly. Knee pain Active rosuvastatin (CRESTOR) 20 Take 20 mg by 0 MG tablet mouth daily. Active latanoprost (XALATAN) Administer 1 0 0.005 % ophthalmic drop to both solution eyes nightly. Active aspirin (ECOTRIN) 81 MG Take 81 mg by 0 enteric coated tablet mouth daily. Active levothyroxine (SYNTHROID, Take 1 tablet 90 tablet 0 LEVOXYL) 88 mcg (88 mcg 8 tabletIndications: total) by Acquired hypothyroidism mouth every morning. Active losartan (COZAAR) 25 MG TAKE ONE 30 tablet 0 tabletIndications: TABLET BY 8 Essential hypertension MOUTH ONCE DAILY Active Problems Problem Noted Date Bilateral carotid artery disease 02/08/2018 Overview: Added automatically from request for graham fe [id number] Hyperlipidemia 06/07/2016 Essential hypertension 06/07/2016 Carotid artery disease 06/07/2016 Chronic back pain 06/07/2016 Bruit 06/07/2016 Encounters Care Team Description Date Type Specialty Jorge Schmidt MD PhD Essential hypertension; Bilateral carotid artery disease, unspecified type (HCC) 03/03/2020 Hospital Procedural Cardiolo gy Encounter 03/03/2020 Travel 02/12/2020 Travel Jorge Schmidt MD PhD Bilateral carotid artery disease, unspec ified type (HCC) (Primary Dx); Other hyperlipidemia; Bilateral carotid artery disease 02/11/2020 Orders Only Cardiology Jorge Schmidt MD PhD Essential hypertension (Primary Dx); Bilateral carotid artery disease, unspecified type (HCC) 01/31/2020 Office Visit Cardiology 01/31/2020 Travel 01/29/2020 Travel 12/05/2019 Travel Hannah Schafer RN Appointment 10/02/2019 Telephone Cardiology Jorge Schmidt MD PhD Follow up (Primary Dx); Essential hypertension 06/13/2019 Office Visit Cardiology after 03/25/2019 Social History Date Tobacco Use Types Packs/Day Years Used Never Smoker Smokeless Tobacco: Never Used Drinks/Week oz/Week Comments Alcohol Use occasional Yes Sex Assigned at Date Recorded Not on file Industry Job Start Date Occupation Not on file Not on file Not on file Travel End Travel History Travel Start No recent travel history available. Date Recorded COVID-19 Exposure Response 03/03/2020 12:38 PM CDT In the last month, have you been in contact with No / Unsure someone who was confirmed or suspected to have Coronavirus / COVID-19? Last Filed Vital Signs Reading Time Taken Comments Vital Sign 114/55 01/31/2020 10:31 AM CDT Blood Pressure 76 01/31/2020 10:31 AM CDT Pulse - - Temperature - - Respiratory Rate 98% 01/31/2020 10:31 AM CDT Oxygen Saturation - - Inhaled Oxygen Concentration 62.6 kg (138 lb) 01/31/2020 10:31 AM CDT Weight 160 cm (5' 3") 01/31/2020 10:31 AM CDT Height 24.45 01/31/2020 10:31 AM CDT Body Mass Index Plan of Treatment Care Team Description Date Type Specialty Jorge Schmidt MD PhD [id number] [facility] [facility] [address] [place], [place] [id number] 05/22/2020 Office Visit Cardiology Health Maintenance Due Date Last Done Comments DIABETIC RETINAL EYE EXAM 1932 DIABETIC FOOT EXAM 1942 URINE MICROALBUMIN 1942 SHINGLES VACCINES (#1) 1982 65+ PNEUMOCOCCAL VACCINE 1997 (1 of 2 - PCV13) INFLUENZA VACCINE 03/28/2020 Procedures Comments Procedure Name Priority Date/Time Associated Diag nosis US CAROTID DUPLEX Routine 03/03/2020 Essential hy pertension BILATERAL 2:00 PM CDT Bilateral carotid a rtery disease, unspecified type (HCC) ECG 12-LEAD Routine 01/31/2020 Essential hyper tension 10:38 AM CDT ECG 12-LEAD Routine 06/13/2019 Follow up 11:15 AM CDT after 03/25/2019 Results * Us carotid duplex (03/03/2020 2:00 PM CDT) Specimen Narrative Performed At [facility] Carotid A rtery Duplex Report [id number] [facility] [facility], [place] [address] For water quality technician purposes, the cat egorization of the degree of the stenosis of this exam is based on criteria descr ibed in the IAC carotid stenosis grading white paper( www.intersocietal.org/Vasc ular) and Vimal Liz., Keysha Lang., et al. Carotid artery stenosis: rock-scale and Doppler US diagnosis--Society of Radiologists in Ultrasound Consensus Conference. Radiol ogy. 2002; 229(2):340-6. Pat.Name: SHANIQUE JENSEN Pat.ID: [id number] .Date: 03/03/2020 Refer.MD: JORGE SCHMIDT MD Exam Time: 1:06:00 PM Study Type:Carotid Height: 64in Weight: 138lb BSA: 1.67 m2 Age: 7 1930,89Y Sex: FEMALE Sonogrphr: MARIO Franco Pat. Stat.:Outpatient Tape Vol: ML, CPT - 4: 42215 Echo Event ID:[id number] Order ID: [id number] Reason for Study:Carotid artery disease . History of hypertension. Procedures: Colorflow, Grayscale/2D, Pu lsed wave Doppler Race: SUMMARY: PHYSICAL ASSESSMENT Blood Pressure Right 102/54 Left 107/52 CAROTID ARTERY SCAN RIGHT: There is smooth intimal lining in the common carotid artery. There is hard and calcified plaque note d in the bulb extending into the proximal internal and external anne tid artery. Colorflow is disturbed with elevated velocities note d in the proximal and mid internal carotid arteries. LEFT: There is smooth intimal lining in the common carotid artery. There is hard and calcified plaque note d in the bulb extending into the proximal internal and external anne tid artery. Colorflow is disturbed with elevated velocities note d in the proximal internal carotid arteries. PRELIMINARY FINDINGS 1. 50-69% stenosis in the right interna l carotid artery. 2. <50% stenosis in the left internal c arotid and bilateral external carotid arteries. 3. Antegrade flow in the bilateral vert ebral arteries. 4. Triphasic Doppler waveforms in the b ilateral subclavian arteries. PHYSICIAN INTERPRETATION Bilateral carotid duplex examination de monstrated atherosclerotic plaques in the bulbs. 50-69% stenosis in the right internal c arotid artery. <50% stenosis in the left internal anne tid and bilateral external carotid arteries. Both vertebral arteries are antegrade. FINDINGS: Carotid Findings: Right Left Verteb.Flw Antegrade Antegrade Subclavian Triphasic Triphasic MEASUREMENTS: DOPPLER Left CCA Dist CCA Dist PSV 94.4 cm/s CCA Dist EDV 14.7 cm/s Left CCA Mid CCA Mid PSV 110 cm/s CCA Mid EDV 18.2 cm/s Left CCA Prox CCA Prox PSV 121 cm/s CCA Prox EDV 21.7 cm/s Left ICA Dist ICA Dist PSV 94.2 cm/s ICA Dist EDV 26.1 cm/s Left ICA Mid ICA Mid PSV 112 cm/s ICA Mid EDV 24.4 cm/s Left ICA Prox ICA Prox PSV 159 cm/s ICA Prox ICA Prox EDV 30 cm/s ICA Prox EDV 31 cm/s ICA Prox PSV 242 cm/s Left ECA Prox ECA Prox PSV 145 cm/s ECA Prox EDV 7.86 cm/s Left SCA Prox SCA Prox PSV 166 cm/s Left Vertebral Vertebral PSV 57.4 cm/s Vertebral EDV 14.1 cm/s Right CCA Dist CCA Dist PSV 80.5 cm/s CCA Dist EDV 16.9 cm/s Right CCA Mid CCA Mid PSV 80.1 cm/s CCA Mid EDV 16.5 cm/s Right CCA Prox CCA Prox PSV 89.7 cm/s CCA Prox EDV 17 cm/s ICA Dist ICA Dist PSV 84 cm/s Right ICA Dist ICA Dist EDV 27.6 cm/s Right ICA Mid ICA Mid PSV 142 cm/s ICA Mid EDV 22.6 cm/s Right ECA Prox ECA Prox PSV 111 cm/s ECA Prox EDV 7.07 cm/s SCA Prox SCA Prox PSV 149 cm/s Right Vertebral Vertebral PSV 61.3 cm/s Vertebral EDV 12.2 cm/s ICA/CCA Ratio ICA/CCA PSV 3.02 Left ICA/CCA Ratio ICA/CCA PSV 1.45 Signed 03/03/2020 02:34 PM Rafael Guerrero MD, RPVI Procedure Note Interface, Radiology Results In - 03/03/2020 2:35 PM CDT [facility] Carotid Artery Duplex Report [id number] [place] [address] For water quality technician purposes, the categorization of the degree of the stenosis of this exam is based on criteria described in the IAC carotid stenosis grading white paper( www.intersocietal.org/Vascular) and Vimal Liz., Kimberlee Lang, et al. Carotid artery stenosis: rock-scale and Doppler US diagnosis--Society of Radiologists in Ultrasound Consensus Conference. Radiology. 2003 Nov; 229(2):340-6. Pat.Name: SHANIQUE JENSEN Carlitos Pat.ID: [id number] .Date: 03/03/2020 Refer.MD: JORGE SCHMIDT MD Exam Time: 1:06:00 PM Study Type:Carotid Height: 64in Weight: 138lb BSA: 1.67 m2 Age: 7 1930,89Y Sex: FEMALE Sonogrphr: MARIO Franco Pat. Stat.:Outpatient Tape Vol: ML, CPT - 4: 51799 Echo Event ID:[id number] Order ID: [id number] Reason for Study:Carotid artery disease. History of hypertension. Procedures: Colorflow, Grayscale/2D, Pulsed wave Doppler Race: SUMMARY: PHYSICAL ASSESSMENT Blood Pressure Right 102/54 Left 107/52 CAROTID ARTERY SCAN RIGHT: There is smooth intimal lining in the common carotid artery. There is hard and calcified plaque noted in the bulb extending into the proximal internal and external carotid artery. Colorflow is disturbed with elevated velocities noted in the proximal and mid internal carotid arteries. LEFT: There is smooth intimal lining in the common carotid artery. There is hard and calcified plaque noted in the bulb extending into the proximal internal and external carotid artery. Colorflow is disturbed with elevated velocities noted in the proximal internal carotid arteries. PRELIMINARY FINDINGS 1. 50-69% stenosis in the right internal carotid artery. 2. <50% stenosis in the left internal ca rotid and bilateral external carotid arteries. 3. Antegrade flow in the bilateral verte bral arteries. 4. Triphasic Doppler waveforms in the bi lateral subclavian arteries. PHYSICIAN INTERPRETATION Bilateral carotid duplex examination demonstrated atherosclerotic plaques in the bulbs. 50-69% stenosis in the right internal carotid artery. <50% stenosis in the left internal carotid and bilateral external carotid arteries. Both vertebral arteries are antegrade. FINDINGS: Carotid Findings: Right Left Verteb.Flw Antegrade Antegrade Subclavian Triphasic Triphasic MEASUREMENTS: DOPPLER Left CCA Dist CCA Dist PSV 94.4 cm/s CCA Dist EDV 14.7 cm/s Left CCA Mid CCA Mid PSV 110 cm/s CCA Mid EDV 18.2 cm/s Left CCA Prox CCA Prox PSV 121 cm/s CCA Prox EDV 21.7 cm/s Left ICA Dist ICA Dist PSV 94.2 cm/s ICA Dist EDV 26.1 cm/s Left ICA Mid ICA Mid PSV 112 cm/s ICA Mid EDV 24.4 cm/s Left ICA Prox ICA Prox PSV 159 cm/s ICA Prox ICA Prox EDV 30 cm/s ICA Prox EDV 31 cm/s ICA Prox PSV 242 cm/s Left ECA Prox ECA Prox PSV 145 cm/s ECA Prox EDV 7.86 cm/s Left SCA Prox SCA Prox PSV 166 cm/s Left Vertebral Vertebral PSV 57.4 cm/s Vertebral EDV 14.1 cm/s Right CCA Dist CCA Dist PSV 80.5 cm/s CCA Dist EDV 16.9 cm/s Right CCA Mid CCA Mid PSV 80.1 cm/s CCA Mid EDV 16.5 cm/s Right CCA Prox CCA Prox PSV 89.7 cm/s CCA Prox EDV 17 cm/s ICA Dist ICA Dist PSV 84 cm/s Right ICA Dist ICA Dist EDV 27.6 cm/s Right ICA Mid ICA Mid PSV 142 cm/s ICA Mid EDV 22.6 cm/s Right ECA Prox ECA Prox PSV 111 cm/s ECA Prox EDV 7.07 cm/s SCA Prox SCA Prox PSV 149 cm/s Right Vertebral Vertebral PSV 61.3 cm/s Vertebral EDV 12.2 cm/s ICA/CCA Ratio ICA/CCA PSV 3.02 Left ICA/CCA Ratio ICA/CCA PSV 1.45 Signed 03/03/2020 02:34 PM Rafael Guerrero MD, [facility] Performing Organization Address City/[facility] Ph one Number [facility] [address] [place] [address] * ECG 12 lead (01/31/2020 10:38 AM CDT) Only the most recent of 2 results within the time period is included. Ventricular 74 [facility] rate Atrial rate 74 [facility] MD interval 130 [facility] QRSD interval 82 [facility] QT interval 384 [facility] QTC interval 426 [facility] P axis 1 79 [facility] QRS axis 1 76 [facility] T wave axis 66 [facility] EKG impression Normal sinus rhythm-Normal [facility] ECG-In automated comparison with ECG of 13-JUN-2019 11:15,-Questionable change in QRS axis- Specimen Narrative Performed At This result has an attachment that is n ot available. Performing Organization Address City/[facility] Ph one Number [facility] [address] [place] [address] after 03/25/2019 Insurance Type Payer Benefit Subscriber ID Effective Phone Address Plan / Dates Group Medicare MEDICARE MEDICARE xxxxxxxxxxx 1997-P [place], PART A AND resent [place] B Commercial AARP AARP xxxxxxxxxxx 2015-P SUPPLEMENT resent [id number] Advance Directives For more information, please contact: [phone] Patient Facilities Planner Explanation Type Date Recorded Advance Directives, Living Will and Medical Power of Manager Programming
--- OUTSIDE RECORDS SUMMARY | 2020-03-27 19:22 | XMS REPORT | Continuity of Care Document ---
Author Author [employer]Builder SLICK Holcomb [email or web address] Address Unknown Phone Unavailable Care Team Providers Care Care Taker Name Role Phone [employer] Unavailable Un available Problems Problem Status Onset Date Classification Date Reported Comments Source Mixed hyperlipidemia Active Diagnosis 03/19/2020 [facility] Essential hypertension Active Problem 03/19/2020 [facility] Arthritis Active Diagnosis 03/19/2020 [facility] Other irritable bowel syndrome Active Problem [facility] Spinal stenosis of lumbar region with ne urogenic claudication Active Diag nosis 03/19/2020 [facility] Acquired hypothyroidism Active Problem 03/19/2020 [facility] Gastroesophageal reflux disease without esophagitis Active Problem 03/19/2020 [facility] Stress incontinence of urine A ctive Diagnosis 0 03/19/2020 [facility] Other insomnia Active Problem 03/19/2020 [facility] Generalized abdominal pain Act dariusz Problem [facility] Renal calculus, right Active Problem 03/19/2020 [facility] Fatty liver Active Problem 03/19/2020 [facility] Breast cancer screening Active Diagnosis 09/27/2018 [facility] Varicose veins of right lower extremity with pain Active Diagnosis 03/19/2020 [facility] Neuropathy Active Diagnosis 03/19/2020 [facility] Dizziness Active Diagnosis 04/23/2019 [facility] Medications Medication Details Route Status Patient Instructions Ordering Provider Order Date Source Myrbetriq 1 tablet Orally Active 50 MG Orally Once a day Jethro01/29/2020 [facility] Lidocaine HCl as directed Externally Active 5 % Externally Twice a day as needed 01/29/2020 [facility] Tramadol HCl 1 tablet as needed Orally Active 50 MG Orally twice a day (bid) as needed (prn) 01/29/2020 [facility] Trazodone HCl 1 tablet at bedt jorje as needed Orally Active 50 MG Orally once every night as needed 09/12/2019 [facility] Pregabalin 1 capsule Orally Active 50 mg Orally once every night Jethro09/02/2019 [facility] Oxybutynin Chloride ER 1 tablet Orally Active 5 MG Orally Once a day [facility] 07/16/2019 [facility] Meclizine HCl 1 tablet Orally Active 25 MG Orally three time s a day (tid) as needed (prn) [facility] 04/22/2019 [facility] Meloxicam 1 tablet Orally Active 15 MG Orally Once a day [facility] 04/22/2019 [facility] Pantoprazole Sodium 1 tablet Orally Active 40 mg Orally Once a day [facility] 08/06/2018 [facility] Oxybutynin Chloride ER 1 tablet Orally Active 5 MG Orally Once a day [facility] 07/02/2018 [facility] Trazodone HCl 1 tablet at bedt jorje as needed Orally Active 50 mg Orally once every night as needed [facility] 05/07/2018 [facility] Oxybutynin Chloride ER 1 tablet Orally Active 5 MG Orally Once a day [facility] 05/07/2018 [facility] Gabapentin 1 capsule Orally Active 300 MG Orally Once a da y [facility] Levothyroxine Sodium 1 tablet Orally Active 88 MCG Orally daily [facility] Rosuvastatin Calcium 1 tablet Orally Active 20 MG Orally Once a day [facility] Bentyl 2 capsules Orally Active 10 MG Orally Four times a day [facility] Calcium & Magnesium Carbonates not defined NA Active [facility] Vitamin E 1 capsule Orally Active 100 UNIT Orally Once a day [facility] Losartan Potassium 1 tablet Orally Active 25 MG Orally Once a day [facility] Flexeril 1 tablet as needed Orally Active 10 MG Orally daily [facility] B Complete not defined Orally Active - Orally [facility] Rosuvastatin Calcium 1 tablet Orally Active 10 MG Orally Once a day [facility] Oxybutynin Chloride ER 1 tablet Orally Active 5 MG Orally Once a day [facility] Gabapentin 1 capsule Orally Active 300 MG Orally three quoc es a day (tid) [facility] Pantoprazole Sodium 1 tablet Orally Active 40 mg Orally Once a day [facility] Aleve 1 tablet with food or mi lk as needed Orally Active 220 MG Orally every 12 hrs [facility] Levothyroxine Sodium 1 tablet Orally Active 75 MCG Orally daily [facility] Lidocaine HCl as directed Externally Active 5 % Externally Twice a day as needed [facility] Allergies, Adverse Reactions, Alerts Substance Category Reaction Severity Reaction type Status Date Reported Comments Source MICRODASTIN Adverse Reaction Info Not Available Adverse Reaction Active 03/18/2020 [facility] SULFA DRUGS Adverse Reaction Info Not Available Adverse Reaction Active 03/18/2020 [facility] PNC Adverse Reaction Info Not Available Adverse Reaction Active 03/18/2020 [facility] Immunizations No Data Provided for This Section Results No Data Provided for This Section Pathology Reports No Data Provided for This Section Diagnostic Reports No Data Provided for This Section Consultation Notes No Data Provided for This Section Discharge Summaries No Data Provided for This Section History and Physicals No Data Provided for This Section Vital Signs Vital Sign Value Date Comments Source Weight 135.2 03/18/2020 [facility] Height 63 0 03/18/2020 [facility] Temperature Oral (F) 97.0 F 03/18/2020 [facility] Heart Rate 70 03/18/2020 [facility] Diastolic (mm Hg) 78 03/18/2020 [facility] Systolic (mm Hg) 135 03/18/2020 [facility] Weight 134.5 01/29/2020 [facility] Height 63 0 01/29/2020 [facility] Temperature Oral (F) 97.5 F 01/29/2020 [facility] Heart Rate 106 01/29/2020 [facility] Diastolic (mm Hg) 71 01/29/2020 [facility] Systolic (mm Hg) 147 01/29/2020 [facility] Weight 136.5 10/29/2019 [facility] Height 63 0 10/29/2019 [facility] Temperature Oral (F) 97.4 F 10/29/2019 [facility] Heart Rate 80 10/29/2019 [facility] Diastolic (mm Hg) 70 10/29/2019 [facility] Systolic (mm Hg) 137 10/29/2019 [facility] Weight 138.8 09/12/2019 [facility] Height 63 0 09/12/2019 [facility] Temperature Oral (F) 98.2 F 09/12/2019 [facility] Heart Rate 97 09/12/2019 [facility] Diastolic (mm Hg) 74 09/12/2019 [facility] Systolic (mm Hg) 146 09/12/2019 [facility] Weight 139.2 04/22/2019 [facility] Height 63 0 04/22/2019 [facility] Temperature Oral (F) 98.0 F 04/22/2019 [facility] Heart Rate 109 04/22/2019 [facility] Diastolic (mm Hg) 72 04/22/2019 [facility] Systolic (mm Hg) 117 04/22/2019 [facility] Weight 143.1 01/17/2019 [facility] Height 63 0 01/17/2019 [facility] Temperature Oral (F) 97.4 F 01/17/2019 [facility] Heart Rate 108 01/17/2019 [facility] Diastolic (mm Hg) 68 01/17/2019 [facility] Systolic (mm Hg) 126 01/17/2019 [facility] Weight 150.8 09/26/2018 [facility] Height 63 0 09/26/2018 [facility] Temperature Oral (F) 97.7 F 09/26/2018 [facility] Heart Rate 105 09/26/2018 [facility] Diastolic (mm Hg) 83 09/26/2018 [facility] Systolic (mm Hg) 155 09/26/2018 [facility] Weight 151.2 08/06/2018 [facility] Height 63 1 10/07/2017 [facility] Temperature Oral (F) 98.4 F 08/06/2018 [facility] Heart Rate 86 08/06/2018 [facility] Diastolic (mm Hg) 71 08/06/2018 [facility] Systolic (mm Hg) 125 08/06/2018 [facility] Weight 148.4 07/04/2018 [facility] Height 63 1 09/03/2017 [facility] Temperature Oral (F) 97.9 F 07/04/2018 [facility] Heart Rate 99 07/04/2018 [facility] Diastolic (mm Hg) 76 07/04/2018 [facility] Systolic (mm Hg) 130 07/04/2018 [facility] Weight 147.5 07/02/2018 [facility] Height 63 1 09/01/2017 [facility] Temperature Oral (F) 97.7 F 07/02/2018 [facility] Heart Rate 106 07/02/2018 [facility] Diastolic (mm Hg) 70 07/02/2018 [facility] Systolic (mm Hg) 116 07/02/2018 [facility] Weight 145.3 05/07/2018 [facility] Height 63 0 05/07/2018 [facility] Temperature Oral (F) 98.2 F 05/07/2018 [facility] Heart Rate 94 05/07/2018 [facility] Diastolic (mm Hg) 73 05/07/2018 [facility] Systolic (mm Hg) 148 05/07/2018 [facility] Weight 144.3 05/02/2018 [facility] Height 63 0 05/02/2018 [facility] Temperature Oral (F) 97.2 F 05/02/2018 [facility] Heart Rate 82 05/02/2018 [facility] Diastolic (mm Hg) 78 05/02/2018 [facility] Systolic (mm Hg) 161 05/02/2018 [facility] Encounters No Data Provided for This Section Procedures No Data Provided for This Section Assessment and Plan No Data Provided for This Section Plan of Care No Data Provided for This Section Social History No Data Provided for This Section Family History No Data Provided for This Section Advance Directives No Data Provided for This Section Functional Status No Data Provided for This Section
--- OUTSIDE RECORDS SUMMARY | 2020-03-27 19:23 | XMS REPORT | Summary of Care ---
Author Author SLICK Whitman Organization Unknown Address Unknown Phone Unavailable Care Team Providers Care Kitchen Runner Name Role Phone HARESH Goff, PARAMJIT Unavailable Unavailable RANJEET Malik, DUNG Unavailable Unavailable SEAN JON, SURINDER Unavailable Unavailable DON JON, JAVIER Unavailable Unavailable HARESH JON DC, PARAMJIT Logan Unavailable Unavailable PIERRE JON, TRISTON Barahona Unavailable Unavailable Unavailable Unavailable Functional Status Name Dates Details Functional status health issues are not documented Status: Name Dates Details Cognitive status health issues are not d ocumented Status: Problems Name Dates Details 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 Active Levothyroxine Sodium TABS * Refills: 0 M.A. Active Crestor TABS * Refills: 0 M.A. Active Pantoprazole Sodium TBEC * Refills: 0 M.A. Active Losartan Potassium TABS * Refills: 0 M.A. Active Aleve CAPS * Refills: 0 M.A. Active Bentyl TABS * Refills: 0 M.A. Active Flexeril TABS * Refills: 0 M.A. Active Vitamin B Complex TABS * Refills: 0 M.A. Active Vitamin E TABS * Refills: 0 M.A. Active Calcium TABS * Refills: 0 M.A. Active HYDROcodone-Acetaminophen 7.5-325 MG Oral Tablet TAKE 1 TABLET EVERY 4 TO 6 HOURS NEEDED FOR PAIN.DO NOT EXCEED 3000MG TOTAL A CETMINOPHEN/DAY FROM ALL SOURCES. MDD:9 TABS * Quantity: 60 Refills: 0 PARAMJIT HUTSON M.D. * Start : 28-Oct-2019 Active traMADol HCl - 50 MG Oral Tablet TAKE 1 TABLET EVERY 8 HOURS NEEDED. * Quantity: 30 Refills: 0 DUNG REZA * Start : 22-Nov-2019 Active Allergies and Adverse Reactions Name Dates Details Macrodantin (Allergy) Status: Active Penicillins (Allergy) Status: Active sulfa (Allergy) Status: Active Past Medical History Name Dates Details History of arthritis (V13.4, Z87.39) Status: Resolved History of Chronic GERD (530.81, K21.9) Status: Resolved History of essential hypertension (V12.5 9, Z86.79) Status: Resolved History of hyperlipidemia (V12.29, Z86.3 9) Status: Resolved History of hypothyroidism (V12.29, Z86.3 9) Status: Resolved History of spinal stenosis (V13.59, Z87. 39) Status: Resolved Procedures Procedure Dates Details Initial Promis 29 Survey Date: 21-Oct-2019 Post Op Promis 29 Survey Date: 14-Nov-2019 History of Thyroid Surgery Completed History of Hysterectomy Completed History of Bladder Surgery Completed History of Back surgery Completed History of Hernia Repair Completed Immunization Name Dates Details Immunizations not documented Social History Name Dates Details Tobacco smoking consumption unknown (finding) Vital Signs Date Test Result Details No Known Vitals to report Results Date Description Value Details Results not documented Plan of Care Name Dates Details Planned Observations Planned Goals not documented Planned Encounters Appointment; PARAMJIT HUTSON M.D. On: 18-Dec-2019 10:45 Instructions Name Dates Details Instructions not documented Encounters Appointment; PARAMJIT HUTSON M.D. Encounter Diagnosis: Problem not documented On: 25-Apr-2019 12:30 Appointment; JAVIER OCHOA M.D. Encounter Diagnosis: Problem not documented On: 03-Oct-2019 9:00 Appointment; [facility], SE Encounter Diagnosis: Problem not documented On: 03-Oct-2019 10:00 Appointment; PARAMJIT HUTSON M.D. Encounter Diagnosis: Problem not documented On: 04-Nov-2019 9:00 Appointment; DUNG POLLACK P.A. Encounter Diagnosis: Problem not documented On: 15-Nov-2019 11:30
--- OUTSIDE RECORDS SUMMARY | 2020-03-27 19:23 | XMS REPORT | Summary of Care ---
Author Author SLICK BLUM Organization Unknown Address Unknown Phone Unavailable Care Team Providers Care Carpenter Rough Name Role Phone AIYANA BLUM Unavailable Unavailable SEAN JON, SURINDER Unavailable Unavailable DON JON, JAVIER Unavailable Unavailable HARESH JON [place], PARAMJIT Logan Unavailable Unavailable PIERRE JON, TRISTON [...] Medications Name Dates Details Oxybutynin Chloride TABS Active Levothyroxine Sodium TABS * Refills: 0 Active Crestor TABS * Refills: 0 Active Pantoprazole Sodium TBEC * Refills: 0 Active Losartan Potassium TABS * Refills: 0 Active Aleve CAPS * Refills: 0 Active Bentyl TABS * Refills: 0 Active Flexeril TABS * Refills: 0 Active Vitamin B Complex TABS * Refills: 0 Active Vitamin E TABS * Refills: 0 Active Calcium TABS * Refills: 0 Active Allergies and Adverse Reactions Name Dates [...] Details Initial Promis 29 Survey Date: 21-Oct-2019 [facility] [place] - [id number] Date: 03-Oct-2019 History of Thyroid Surgery Completed History of Hysterectomy Completed History of Bladder Surgery Completed History of Back surgery Completed History of Hernia Repair Completed Immunization Name Dates Details Immunizations not documented Social History Name Dates Details Tobacco smoking consumption unknown (finding) Vital Signs Date Test Result Details No Known Vitals to report Results Date Description Value Details [id number] [U] XRAY KNEE 3 VWS RIGHT [id number] XR KNEE 3 VWS RIGHT Images acquired, not reported on this accession number. Plan of Care Name Dates Details Planned Observations Planned Goals not documented Planned Encounters Appointment; DUNG POLLACK P.A. On: 15-Nov-2019 11:30 Appointment; PARAMJIT HUTSON M.D. On: 18-Dec-2019 10:45 Instructions Name Dates Details Instructions not documented Encounters Appointment; PARAMJIT HUTSON M.D. Encounter Diagnosis: Problem not documented On: 25-Apr-2019 12:30 Appointment; JAVIER OCHOA M.D. Encounter Diagnosis: Problem not documented On: 03-Oct-2019 9:00 Appointment; [facility], SE Encounter Diagnosis: Problem not documented On: 03-Oct-2019 10:00
--- OUTSIDE RECORDS SUMMARY | 2020-03-27 19:23 | XMS REPORT | Summary of Care ---
Author Author SLICK OCHOA M.D. Organization Unknown Address Unknown Phone Unavailable Care Team Providers Care Supervisor Cab Name Role Phone DON Goff, JAVIER Unavailable Unavailable SURINDER ESTRADA MD Unavailable Unavailable JAVIER OCHOA MD Unavailable Unavailable HARESH JON NM, PARAMJIT Logan Unavailable Unavailable TRISTON JAY MD Unavailable Unavailable Unavailable Unavailable Functional Status Name [...] occlusive dise ase) (444.22, I77.9) Status: Active Medications Name Dates Details Oxybutynin [...] 39) Status: Resolved Procedures Procedure Dates Details [facility] [place] - [id number] Date: 03-Oct-2019 History of Thyroid Surgery Completed History of Hysterectomy Completed History of Bladder Surgery Completed History of Back surgery Completed History of Hernia Repair Completed Immunization Name Dates Details Immunizations not documented Social History Name Dates Details Unknown if ever smoked Vital Signs Date Test Result Details No Known Vitals to report Results Date Description Value Details Results not documented Plan of Care Name Dates Details Planned Observations Planned Goals not documented Planned Encounters Appointment; DUNG POLLACK P.A. On: 15-Nov-2019 11:30 Appointment; PARAMJIT HUTSON M.D. On: 18-Dec-2019 10:45 Interventions Provided Plan* I evaluated Ms. Jensen today for planned right knee surgery; non- palpable pedal pulses and symptomatic varicose veins. * At this time, the priority is to give her clearance for knee surgery. * Will have the Donnie LE Arterial Doppler done today for clearance (Adequate perfusion to Donnie LE's noted on Donnie LE Arterial Doppler done today 10/03/2019). * And, then once she has recovered from her knee surgery will proceed with evaluating her venous disease. Instructions Name Dates Details Instructions not documented Encounters Appointment; PARAMJIT HUTSON M.D. Encounter Diagnosis: Problem not documented On: 25-Apr-2019 12:30 Appointment; JAVIER OCHOA M.D. Encounter Diagnosis: Problem not documented On: 03-Oct-2019 9:00
--- OUTSIDE RECORDS SUMMARY | 2020-03-27 19:23 | XMS REPORT | Summary of Care ---
Author SLICK Barriga N.P. Organization Unknown Address [facility] Phone Unavailable Care Team Providers Care Government Clerk Name Role Phone DON Goff, JAVIER Unavailable Unavailable SURINDER ESTRADA MD Unavailable Unavailable JAVIER OCHOA MD Unavailable Unavailable HARESH JON CO, PARAMJIT Logan Unavailable Unavailable TRISTON JAY MD [...] 39) Status: Resolved Procedures Procedure Dates Details History of Thyroid Surgery Completed History of [...] Planned Goals not documented Planned Encounters Appointment; SE KATHERYN On: 03-Oct-2019 10:00 Appointment; DUNG POLLACK P.A. On: 15-Nov-2019 11:30 Appointment; PARAMJIT HUTSON M.D. On: 18-Dec-2019 10:45 Interventions Provided Plan* I evaluated Ms. Jensen today for planned right knee surgery; non- palpable pedal pulses and symptomatic varicose veins. * At this time, the priority is to give her clearance for knee surgery. * Will have the Donnie LE Arterial Doppler done today for clearance. * And, then once she has recovered from her knee surgery will proceed with evaluating her venous disease. Instructions Name Dates Details Instructions not documented Encounters Appointment; PARAMJIT HUTSON M.D. Encounter Diagnosis: Problem not documented On: 25-Apr-2019 12:30 Appointment; JAVIER OCHOA M.D. Encounter Diagnosis: Problem not documented On: 03-Oct-2019 9:00
--- OUTSIDE RECORDS SUMMARY | 2020-03-27 19:23 | XMS REPORT | Summary of Care ---
Author Author SLICK GARCIA N.P. Organization Unknown Address [facility] Phone Unavailable Care Team Providers Care Sports Book Board Attendant Name Role Phone DON Goff, JAVIER Unavailable Unavailable SURINDER ESTRADA MD Unavailable Unavailable HARESH JON [place], PARAMJIT Logan Unavailable Unavailable TRISTON JAY MD [...] right lower extremity (454.9, I83.91) Status: Active Medications Name Dates Details Oxybutynin [...] Planned Goals not documented Planned Encounters Appointment; JAVIER OCHOA M.D. On: 03-Oct-2019 9:00 Appointment; DUNG POLLACK P.A. On: 15-Nov-2019 11:30 Appointment; PARAMJIT HUTSON M.D. On: 18-Dec-2019 10:45 Interventions Provided Plan* I evaluated Ms. Jensen today for symptomatic varicose veins. Instructions Name Dates Details Instructions not documented Encounters Appointment; PARAMJIT HUTSON M.D. Encounter Diagnosis: Problem not documented On: 25-Apr-2019 12:30 Appointment; JAVIER OCHOA M.D. Encounter Diagnosis: Problem not documented On: 03-Oct-2019 9:00
--- OUTSIDE RECORDS SUMMARY | 2020-03-27 19:23 | XMS REPORT | Summary of Care ---
Author Author SLICK Freeman Organization Unknown Address Unknown Phone Unavailable Care Team Providers Care Director Orange Name Role Phone [facility], SE Unavailable Unavailable SEAN JON, SURINDER Unavailable Unavailable DON JON, JAVIER Unavailable Unavailable HARESH JON CO, PARAMJIT Logan Unavailable Unavailable PIERRE JON, TRISTON [...] Procedure Dates Details [facility] [place] - [id number] Date: 03-Oct-2019 History of Thyroid Surgery Completed [...] HUTSON M.D. On: 18-Dec-2019 10:45 Interventions Provided Labs/Procedures/Imaging* [facility] [place] - [id number]; To Be Done: 03 Oct 2019 Instructions Name Dates Details Instructions not documented Encounters Appointment; PARAMJIT HUTSON M.D. Encounter Diagnosis: Problem not documented On: 25-Apr-2019 12:30 Appointment; JAVIER OCHOA M.D. Encounter Diagnosis: Problem not documented On: 03-Oct-2019 9:00 Appointment; [facility], SE Encounter Diagnosis: Problem not documented On: 03-Oct-2019 10:00
--- OUTSIDE RECORDS SUMMARY | 2020-03-27 19:23 | XMS REPORT | Summary of Care ---
Author Author SLICK REZA Organization Unknown Address Unknown Phone Unavailable Care Team Providers Care Automatic Furnace Operator Name Role Phone PARAMJIT HUTSON M.D. Unavailable Unavailable DUNG REZA Unavailable Unavailable SEAN JON, SURINDER Unavailable Unavailable JAVIER OCHOA MD Unavailable Unavailable HARESH JON [place], PARAMJIT Logan Unavailable Unavailable PIERRE JON, TRISTON [...] Active Calcium TABS * Refills: 0 Active HYDROcodone-Acetaminophen 7.5-325 MG Oral Tablet TAKE [...] Post Op Promis 29 Survey Date: 14-Nov-2019 [facility] [place] - [id number] Date: 03-Oct-2019 History of Thyroid Surgery Completed History of Hysterectomy Completed History of Bladder Surgery Completed History of Back surgery Completed History of Hernia Repair Completed Immunization Name Dates Details Immunizations not documented Social History Name Dates Details Tobacco smoking consumption unknown (finding) Vital Signs Date Test Result Details No Known Vitals to report Results Date Description Value Details [id number] [U] XRAY KNEE 3 VWS RIGHT [id number] XR KNEE 3 VWS RIGHT Images acquired, [...]
--- OUTSIDE RECORDS SUMMARY | 2020-03-27 19:23 | XMS REPORT | Summary of Care ---
Author Author HARESH Goff, SLICK HICKS Organization Unknown Address Unknown Phone Unavailable Care Team Providers Care Newsperson Name Role Phone PARAMJIT HUTSON M.D. Unavailable Unavailable SURINDER ESTRADA MD Unavailable Unavailable JAVIER OCHAO MD Unavailable Unavailable HARESH JON RI, PARAMJIT Logan Unavailable Unavailable TRISTON JAY MD [...] HUTSON M.D. * Start : 28-Oct-2019 Active Allergies and Adverse Reactions Name Dates [...] Survey Date: 21-Oct-2019 [facility] [place] - [id number] Date: 03-Oct-2019 History of Thyroid Surgery Completed History of Hysterectomy Completed History of Bladder Surgery Completed History of Back surgery Completed History of Hernia Repair Completed Immunization Name Dates Details Immunizations not documented Social History Name Dates Details Tobacco smoking consumption unknown (finding) Vital Signs Date Test Result Details No Known Vitals to report Results Date Description Value Details [id number] [U] XRAY KNEE 3 VWS RIGHT 43614 XR KNEE 3 VWS RIGHT Images acquired, not reported on this accession number. Plan of Care Name Dates Details Planned Observations Planned Goals not documented Planned Encounters Appointment; DUNG POLLACK P.A. On: 15-Nov-2019 11:30 Appointment; PARAMJIT HUTSON M.D. On: 18-Dec-2019 10:45 Interventions Provided Medication Changes* HYDROcodone-Acetaminophen 7.5-325 MG Oral Tablet - Start Labs/Procedures/Imaging* [U] XRAY KNEE 3 VWS RIGHT 72892; Done: 25 Oct 2019 * [U] XRAY KNEE 3 VWS RIGHT 31437; Done: 25 Apr 2019 Instructions Name Dates Details Instructions not documented Encounters Appointment; PARAMJIT HUTSON M.D. Encounter Diagnosis: Problem not documented On: 25-Apr-2019 12:30
--- OUTSIDE RECORDS SUMMARY | 2020-03-27 19:23 | XMS REPORT | Summary of Care ---
Author Author SLICK REZA Organization Unknown Address Unknown Phone Unavailable Care Team Providers Care Medical Research Scientist Name Role Phone PARAMJIT HUTSON M.D. Unavailable [...] Survey Date: 14-Nov-2019 [facility] [place] - [id number] Date: 03-Oct-2019 History of Thyroid Surgery Completed History of Hysterectomy Completed History of Bladder Surgery Completed History of Back surgery Completed History of Hernia Repair Completed Immunization Name Dates Details Immunizations not documented Social History Name Dates Details Tobacco smoking consumption unknown (finding) Vital Signs Date Test Result Details No Known Vitals to report Results Date Description Value Details [id number] [U] XRAY KNEE 3 VWS RIGHT [id number] XR KNEE 3 VWS RIGHT Images acquired, not reported on this accession number. Plan of Care Name Dates Details Planned Observations Planned Goals not documented Planned Encounters Appointment; PARAMJIT HUTSON M.D. On: 18-Dec-2019 10:45 Interventions Provided Medication Changes* traMADol HCl - 50 MG Oral Tablet - Start Instructions Name Dates Details Instructions not documented Encounters Appointment; PARAMJIT HUTSON M.D. Encounter Diagnosis: Problem not documented On: 25-Apr-2019 12:30 Appointment; JAVIER OCHOA M.D. Encounter Diagnosis: Problem not documented On: 03-Oct-2019 9:00 Appointment; VASCULAR, SE Encounter Diagnosis: Problem not documented On: 03-Oct-2019 10:00 Appointment; PARAMJIT HUTSON M.D. Encounter Diagnosis: Problem not documented On: 04-Nov-2019 9:00 Appointment; HAWKS, CHRISTOPHER, P.A. Encounter Diagnosis: Problem not documented On: 15-Nov-2019 11:30
--- OUTSIDE RECORDS SUMMARY | 2020-03-27 19:23 | XMS REPORT ---
Author Author Shanique Morelos Organization [employer] Address Unknown Phone Unavailable Care Team Providers Care Public Health Social Worker Name Role Phone Anju Morelos Unavailable Allergies, [...] Carbonates NDC 0 A ctive not defined Rosuvastatin Calcium NDC 79806757629 10 MG Orally Once a day Active 1 tablet Flexeril NDC 0 10 MG Orally daily Active 1 ta blet as needed Pregabalin ND 13410286842 50 mg Orally once every night Sep 02 0 Active 1 capsule Pantoprazole Sodium ND 13376904772 40 mg Orally Once a day Active 1 tablet B Complete [facility] 95554794483 - Orally Active not def ined Oxybutynin Chloride ER [facility] 78221079947 5 MG Orally Once a day Active 1 tablet Vitamin E [facility] 42408093324 100 UNIT Orally Once a day Active 1 capsule Bentyl [facility] 95933558858 10 MG Orally Four times a day Active 2 capsules Trazodone HCl [facility] 40126190413 50 MG Orally once every nig ht as needed Sep 12, 2019 Active 1 tablet at bedtime as needed Aleve ND 47320076215 220 MG Orally every 12 hrs A ctive 1 tablet with food or milk as needed Losartan Potassium ND 21871424560 25 MG Orally Once a day Active 1 tablet Levothyroxine Sodium [facility] 41379203581 75 MCG Orally daily Active 1 tablet Vital Signs Date/Time: October 29, 2019 BMI 24.18 Index Weight 136.5 lbs Height 63 in Temperature 97.4 F Cardiac Monitoring Heart Rate 80 /min Blood Pressure Diastolic 70 mm Hg Blood Pressure Systolic 137 mm Hg Results No Known Results Summary Purpose [employer] Submission
--- OUTSIDE RECORDS SUMMARY | 2020-03-27 19:23 | XMS REPORT ---
Author Author Shanique Morelos Organization [employer] Address Unknown Phone Unavailable Care Team Providers Care Cad Cam Programmer Name Role Phone Jethro Anju Unavailable Allergies, [...] ve Problem Renal calculus, right N20.0 Active Problem Generalized abdominal pain R10.84 A ctive Problem Fatty liver K76.0 Active Problem Arthritis M19.90 Active Problem Mixed hyperlipidemia E78.2 Active Problem Other insomnia G47.09 Active Problem Stress incontinence of urine N39.3 Active Assessment Fatty liver K76.0 Active Assessment Other irritable bowel syndrome K58.8 Active Assessment Renal calculus, right N20.0 Active Assessment Generalized abdominal pain R10.84 A ctive Assessment 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 Problem 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 Active Assessment Gastroesophageal reflux disease without esophagitis K2 1.9 Active Problem Other irritable bowel syndrome K58.8 Active Medications Medication Code System Code Instructions Start Date End Date Status Dosage Losartan Potassium ND 63095302141 25 MG Orally Once a day Active 1 tablet Gabapentin ND 19351886658 300 MG Orally Once a day Active 1 capsule B Complete ND 53922065069 - Orally Active not def ined Calcium & Magnesium Carbonates NDC 0 A ctive not defined Oxybutynin Chloride ER ND 87984856204 5 MG Orally Once a day Jul 02, 2018 December 29, 2018 Active 1 tablet Levothyroxine Sodium ND 35706479422 88 MCG Orally daily Active 1 tablet Vitamin E ND 55169792212 100 UNIT Orally Once a day Active 1 capsule Flexeril NDC 0 10 MG Orally daily Active 1 ta blet as needed Bentyl [facility] 53932722819 10 MG Orally Four times a day Active 2 capsules Rosuvastatin Calcium [facility] 29381988666 10 MG Orally Once a day Active 1 tablet Vital Signs Date/Time: Jul 04, 2018 BMI 26.29 Index Weight 148.4 lbs Height 63 in Temperature 97.9 F Cardiac Monitoring Heart Rate 99 /min Blood Pressure Diastolic 76 mm Hg Blood Pressure Systolic 130 mm Hg Results No Known Results Summary Purpose [employer] Submission
--- OUTSIDE RECORDS SUMMARY | 2020-03-27 19:23 | XMS REPORT ---
Author Author Shanique Morelos Organization [employer] Address Unknown Phone Unavailable Care Team Providers Care Burnisher And Bumper Name Role Phone Anju Morelos Unavailable Allergies, [...] Problem Renal calculus, right N20.0 Active Assessment Renal calculus, right N20.0 Active Problem Generalized abdominal pain R10.84 A ctive Assessment Arthritis M19.90 Active Assessment Acquired hypothyroidism E03.9 Acti ve Problem Fatty liver K76.0 Active Problem Arthritis M19.90 Active Problem Mixed hyperlipidemia E78.2 Active Problem Other insomnia G47.09 Active Problem Stress incontinence of urine N39.3 Active Assessment Gastroesophageal reflux disease without esophagitis K2 1.9 Active Assessment Fatty liver K76.0 Active Assessment 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 Assessment Other irritable bowel syndrome K58.8 Active Assessment Annual physical exam Z00.00 Active Assessment Breast cancer screening Z12.31 Acti ve Assessment Mixed hyperlipidemia E78.2 Active Problem 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 Active Assessment Stress incontinence of urine N39.3 Active Assessment Essential hypertension I10 Activ e Problem Other irritable bowel syndrome K58.8 Active Medications Medication Code System Code Instructions Start Date End Date Status Dosage Vitamin E NDC 46180107339 100 UNIT Orally Once a day Active 1 capsule Flexeril NDC 0 10 MG Orally daily Active 1 ta blet as needed Oxybutynin Chloride ER NDC 37149661371 5 MG Orally Once a day Active 1 tablet Pantoprazole Sodium NDC 75650811669 40 mg Orally Once a day Active 1 tablet Calcium & Magnesium Carbonates NDC 0 A ctive not defined Rosuvastatin Calcium NDC 04397623085 10 MG Orally Once a day Active 1 tablet Levothyroxine Sodium ND 28863393210 88 MCG Orally daily Active 1 tablet Gabapentin [facility] 41616179250 300 MG Orally three times a day (tid) Active 1 capsule Bentyl [facility] 21081929674 10 MG Orally Four times a day Active 2 capsules Levothyroxine Sodium [facility] 73563491554 88 MCG Orally daily Active 1 tablet B Complete [facility] 97882300838 - Orally Active not def ined Losartan Potassium [facility] 41790406674 25 MG Orally Once a day Active 1 tablet Vital Signs Date/Time: Sep 26, 2018 BMI 26.71 Index Weight 150.8 lbs Height 63 in Temperature 97.7 F Cardiac Monitoring Heart Rate 105 /min Blood Pressure Diastolic 83 mm Hg Blood Pressure Systolic 155 mm Hg Results No Known Results Summary Purpose [employer] Submission
--- OUTSIDE RECORDS SUMMARY | 2020-03-27 19:23 | XMS REPORT | Summary of Care ---
Author Author SLICK Dennis Organization Unknown Address Unknown Phone Unavailable Care Team Providers Care Fleet Administrator Name Role Phone Sonny Seda Unavailable Unavailable APRAMJIT HUTSON M.D. 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, 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, 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.96, M17.11 ) Status: Active Varicose veins of right lower [...] Survey Date: 14-Nov-2019 [facility] [place] - [address] Date: 03-Oct-2019 History of Hernia Repair Completed History of Thyroid Surgery Completed History of Bladder Surgery Completed History of Hysterectomy Completed History of Back surgery Completed Immunization Name Dates Details Immunizations not documented Social History Name Dates Details Tobacco smoking consumption unknown (finding) Vital Signs Date Test Result Details No Known Vitals to report Results Date Description Value Details [id number] [U] XRAY KNEE 3 VWS RIGHT 96527 XR KNEE 3 VWS RIGHT Images acquired, not reported on this accession number. Plan of Care Name Dates Details Planned Observations Planned Goals not documented Planned Encounters Appointment; DUNG POLLACK P.A. On: 15-Nov-2019 11:30 Appointment; PARAMJIT HUTSON M.D. On: 18-Dec-2019 10:45 Interventions Provided Labs/Procedures/Imaging* Post Op Promis 29 Survey; To Be Done: 14 Nov 2019 Instructions Name Dates Details Instructions not documented Encounters Appointment; PARAMJIT HUTSON M.D. Encounter Diagnosis: Problem not documented On: 25-Apr-2019 12:30 Appointment; JAVIER OCHOA M.D. Encounter Diagnosis: Problem not documented On: 03-Oct-2019 9:00 Appointment; VASCULAR, SE Encounter Diagnosis: Problem not documented On: 03-Oct-2019 10:00 Appointment; PARAMJIT HUTSON M.D. Encounter Diagnosis: Problem not documented On: 04-Nov-2019 9:00
--- OUTSIDE RECORDS SUMMARY | 2020-03-27 19:23 | XMS REPORT | Summary of Care ---
Author Author SLICK OCHOA M.D. Organization Unknown Address Unknown Phone Unavailable Care Team Providers Care Underwriting Manager Name Role Phone DON Goff, JAVIER Unavailable Unavailable SURINDER ESTRADA MD Unavailable Unavailable JAVIER OCHOA MD Unavailable Unavailable HARESH JON [place], PARAMJIT Logan Unavailable Unavailable TRISTON JAY MD [...] Procedure Dates Details [facility] [place] - [address] Date: 03-Oct-2019 History of Thyroid Surgery Completed [...] will proceed with evaluating her venous disease. * Cleared to proceed with her knee surgery. Instructions Name Dates Details Instructions not documented Encounters Appointment; PARAMJIT HUTSON M.D. Encounter Diagnosis: Problem not documented On: 25-Apr-2019 12:30 Appointment; JAVIER OCHOA M.D. Encounter Diagnosis: Problem not documented On: 03-Oct-2019 9:00
--- OUTSIDE RECORDS SUMMARY | 2020-03-27 19:23 | XMS REPORT ---
Author Author Shanique Morelos Organization [employer] Address Unknown Phone Unavailable Care Team Providers Care Salvage Supervisor Name Role Phone Anju Morelos Unavailable Allergies, [...] Problem Renal calculus, right N20.0 Active Assessment Acquired hypothyroidism E03.9 Acti ve Problem Generalized abdominal pain R10.84 A ctive Assessment Stress incontinence of urine N39.3 Active Problem Fatty liver K76.0 Active Problem Arthritis M19.90 Active Problem Mixed hyperlipidemia E78.2 Active Problem Other insomnia G47.09 Active Problem Stress incontinence of urine N39.3 Active Assessment Mixed hyperlipidemia E78.2 Active Assessment Fatty liver K76.0 Active Assessment Arthritis M19.90 Active Assessment 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 Assessment Essential hypertension I10 Activ e Assessment Other irritable bowel syndrome K58.8 Active Problem 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 Active Assessment Gastroesophageal reflux disease without esophagitis K2 1.9 Active Problem Other irritable bowel syndrome K58.8 Active Medications Medication Code System Code Instructions Start Date End Date Status Dosage B Complete [facility] 59635178046 - Orally Active not def ined Levothyroxine Sodium [facility] 52304305064 88 MCG Orally daily Active 1 tablet Pantoprazole Sodium [facility] 30103184279 40 mg Orally Once a day Active 1 tablet Vitamin E [facility] 96165143288 100 UNIT Orally Once a day Active 1 capsule Oxybutynin Chloride ER [facility] 16478727004 5 MG Orally Once a day Jul 16, 2019 Active 1 tablet Bentyl [facility] 70708383500 10 MG Orally Four times a day Active 2 capsules Gabapentin [facility] 83294842022 300 MG Orally three times a day (tid) Active 1 capsule Flexeril NDC 0 10 MG Orally daily Active 1 ta blet as needed Rosuvastatin Calcium NDC 27138317069 10 MG Orally Once a day Active 1 tablet Losartan Potassium ND 47195428279 25 MG Orally Once a day Active 1 tablet Levothyroxine Sodium ND 03534673046 88 MCG Orally daily Active 1 tablet Rosuvastatin Calcium ND 08066574620 10 MG Orally Once a day Active 1 tablet Losartan Potassium ND 23545093589 25 MG Orally Once a day Active 1 tablet Calcium & Magnesium Carbonates NDC 0 A ctive not defined Vital Signs Date/Time: January 17, 2019 BMI 25.35 Index Weight 143.1 lbs Height 63 in Temperature 97.4 F Cardiac Monitoring Heart Rate 108 /min Blood Pressure Diastolic 68 mm Hg Blood Pressure Systolic 126 mm Hg Results No Known Results Summary Purpose [employer] Submission
--- OUTSIDE RECORDS SUMMARY | 2020-03-27 19:23 | XMS REPORT | Summary of Care ---
Author Author SLICK Duffy M.A. Organization Unknown Address [facility] Phone Unavailable Care Team Providers Care Director Clinical Information Services Name Role Phone Stacey Duffy M.A. Unavailable Unavailable SEAN JON, SURINDER Unavailable Unavailable DON JON, JAVIER Unavailable Unavailable HARESH JON [place], PARAMJIT Logan Unavailable Unavailable PIERRE JON, TRISTON [...] Details Initial Promis 29 Survey Date: 21-Oct-2019 [facility] - [place] - [address] Date: 03-Oct-2019 History of Thyroid Surgery Completed [...] of Care Name Dates Details Planned Observations Initial Promis 29 Survey On: 04-Nov-2019 Intent Planned Goals not documented Planned Encounters Appointment; [...]
--- OUTSIDE RECORDS SUMMARY | 2020-03-27 19:23 | XMS REPORT | Summary of Care ---
Author Author SLICK Whitman Organization Unknown Address Unknown Phone Unavailable Care Team Providers Care Hair Dresser Name Role Phone PARAMJIT HUTSON M.D. Unavailable Unavailable SURINDER ESTRADA MD Unavailable Unavailable JAVIER OCHOA MD Unavailable Unavailable HARESH SIGALA, PARAMJIT Logan Unavailable Unavailable TRISTON JAY MD [...] 0 PARAMJIT HUTSON M.D. * Start : 2-Mar-2020 Active Allergies and Adverse Reactions Name Dates [...] Survey Date: 21-Oct-2019 [facility] [place] - [address] Date: 03-Oct-2019 History of Thyroid Surgery Completed History of Hysterectomy Completed History of Bladder Surgery Completed History of Back surgery Completed History of Hernia Repair Completed Immunization Name Dates Details Immunizations not documented Social History Name Dates Details Tobacco smoking consumption unknown (finding) Vital Signs Date Test Result Details No Known Vitals to report Results Date Description Value Details [id number] [U] XRAY KNEE 3 VWS RIGHT 53974 XR KNEE 3 VWS RIGHT Images acquired, [...]
--- OUTSIDE RECORDS SUMMARY | 2020-03-27 19:23 | XMS REPORT | Summary of Care ---
Author Author SLICK Dunham M.A. Organization Unknown Address Unknown Phone Unavailable Care Team Providers Care Cardiac Exercise Specialist Name Role Phone Tory Dunham M.A. Unavailable Unavailable SEAN JON, SURINDER Unavailable Unavailable DON JON, JAVIER Unavailable Unavailable HARESH JON [place], PARAMJIT Logan Unavailable Unavailable PIERRE JON, TRISTON [...] Details Initial Promis 29 Survey Date: 21-Oct-2019 [U] XRAY KNEE 3 VWS RIGHT 59618 Date: 25-Oct-2019 [facility] [place] - [address] Date: 03-Oct-2019 History of Thyroid Surgery Completed [...] M.D. On: 18-Dec-2019 10:45 Interventions Provided Labs/Procedures/Imaging* [U] XRAY KNEE 3 VWS RIGHT 43488; To Be Done: 25 Oct 2019 Instructions Name Dates Details Instructions not documented Encounters Appointment; PARAMJIT HUTSON M.D. Encounter Diagnosis: Problem not documented On: 25-Apr-2019 12:30 Appointment; JAVIER OCHOA M.D. Encounter Diagnosis: Problem not documented On: 03-Oct-2019 9:00 Appointment; VASCULAR, SE Encounter Diagnosis: Problem not documented On: 03-Oct-2019 10:00
--- OUTSIDE RECORDS SUMMARY | 2020-03-27 19:23 | XMS REPORT | Summary of Care ---
Author Author SLICK BLUM Organization Unknown Address Unknown Phone Unavailable Care Team Providers Care Oil Gauger Name Role Phone PARAMJIT HUTSON M.D. Unavailable Unavailable DUNG REZA Unavailable Unavailable AIYANA BLUM Unavailable Unavailable SURINDER ESTRADA MD Unavailable Unavailable DON JON, JAVIER Unavailable Unavailable HARESH JON PA, PARAMJIT Logan Unavailable Unavailable PIERRE JON, TRISTON [...] HOURS NEEDED. * Quantity: 30 Refills: 0 RANJEET Estrada.Helder, DUNG * Start : 22-Nov-2019 Active traMADol HCl - 50 MG Oral Tablet TAKE 1 TABLET EVERY 4 TO 6 HOURS NEEDED FOR PAIN.DO NOT EXCEED 300MG/DAY. * Quantity: 20 Refills: 0 EUHUS P.A., AIYANA * Start : 23-Dec-2019 Active Allergies and Adverse Reactions Name Dates [...] 39) Status: Resolved Procedures Procedure Dates Details Post Op Promis 29 Survey Date: 14-Nov-2019 [...] Details Planned Observations Planned Goals not documented Interventions Provided Medication Changes* traMADol HCl - [...] Diagnosis: Problem not documented On: 15-Nov-2019 11:30 Appointment; PARAMJIT HUTSON M.D. Encounter Diagnosis: Problem not documented On: 18-Dec-2019 10:45
--- OUTSIDE RECORDS SUMMARY | 2020-03-27 19:23 | XMS REPORT | Summary of Care ---
Author SLICK Barriga N.P. Organization Unknown Address [facility] Phone Unavailable Care Team Providers Care Carrot Grader Inspector Name Role Phone DON Goff, JAVIER Unavailable Unavailable SEAN JON, SURINDER Unavailable Unavailable TRISTON JAY MD Unavailable Unavailable [...] Appointment; JAVIER OCHOA M.D. On: 03-Oct-2019 9:00 Instructions Name Dates Details Instructions not documented Encounters Appointment; PARAMJIT HUTSON M.D. Encounter Diagnosis: Problem not documented On: 25-Apr-2019 12:30 Appointment; JAVIER OCHOA M.D. Encounter Diagnosis: Problem not documented On: 03-Oct-2019 9:00
--- OUTSIDE RECORDS SUMMARY | 2020-03-27 19:23 | XMS REPORT | Continuity of Care Document ---
Author Author [facility] t Organization [facility] Address 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 Attphys Unavailable DUNG POLLACK P.A. Attphys Unavailable VASCULAR, SE Attphys Unavailable JAVIER OCHOA M.D. Attphys Unavailable Gilmar LAMAS, Hannah Attphys Unavailable OJEASSheng Attphys Unavailable HAMPEL, RENETTA Attphys Unavailable Payers Payer Name Policy Type Policy Number Effective Date Expiration Date Sheng colin ROB [id number] 2019 00:00:00 [facility] Medicare A & B [id number] 1997 00:00:00 [facility] MEDICAREMEDICARE PART A AND Bxxxxxxxxxxx1996-Juan IVAN [place] 1997 00:00:00 Jalen Baez AARPAARP SUPPLEMENTxxxxxxxxxxx2015-PresentCommercial xxxxxxxxxxx 2015 00:00:00 Jalen Baez Problems Condition Name Condition Details Condition Category Status Onset Date Resolution Date Last Treatment Date Treating Clinician Comments Source Bilateral carotid artery disease Bilateral carotid artery diseas e Disease Active 2018-02-08 00:00:00 Overview : Added automatically from request for surgery [id number] Jalen Baez Hyperlipidemia Hyperlipidemia Disease Active 2016-06-07 00:00:00 Jalen Baez Essential hypertension Essential hypertension Disease Active 2016-06-07 00:00:00 Jalen soto Carotid artery disease Carotid artery disease Disease Active 2016-06-07 00:00:00 Jalen soto Chronic back pain Chronic back pain Disease Active 2016-06-07 00:00:00 Jalen Baez Bruit Bruit Disease Active 2016-06-07 00:00:00 Jalen Baez Contusion of head Problem Active [facility] Contusion of lip Problem Active [facility] Laceration of nose Problem Active [facility] Abrasion of right knee Problem Active [facility] History of arthritis History of arthritis Problem Resolved [facility] History of Chronic GERD History of Chronic GERD Problem Resolved [facility] History of essential hypertension History of essential hypertens ion Problem Resolved [facility] History of hyperlipidemia History of hyperlipidemia Problem Resolved [facility] History of hypothyroidism History of hypothyroidism Problem Resolved [facility] History of spinal stenosis History of spinal stenosis Problem Resolved [facility] 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 and inflammation Problem Active [facility] Varicose veins of right lower extremity Varicose veins of ri ght lower extremity Problem Active [facility] Arthritis of knee, right Arthritis of knee, right Problem Active [facility] PAOD (peripheral arterial occlusive disease) PAOD (per ipheral arterial occlusive disease) Problem Active [facility] Postoperative pain Postoperative pain Problem Active [facility] Mixed hyperlipidemia Mixe d hyperlipidemia Active Diagnosis 03/19/2020 [facility] Primary Diagnosis Active 2020-03-19 0 2:45:15 Jax Sims Essential hypertension Esse ntial hypertension Active Problem 03/19/2020 [facility] Primary Problem Active 2020-03-19 02: 45:15 Jax Sims Arthritis Arth ritis Active Diagnosis 03/19/2020 [facility] Primary Diagnosis Active 2020-03-19 02:45:15 Jax Sims Other irritable bowel syndrome Other irritable bowel syndrome Active Problem 03/19/2020 [facility] Primary Problem Active 2020-03-19 02:45:15 Jax Sims 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 Active Diagnosis 03/19/2020 [facility] Primary Diagnosis Active 2020-03-19 0 2:45:15 Jax Sims Acquired hypothyroidism Acqu ired hypothyroidism Active Problem 03/19/2020 [facility] Primary Problem Active 2020-03-19 02: 45:15 Jax Sims Gastroesophageal reflux disease without esophagitis Gastroesophageal reflux disease without esophagitis Active Problem 03/19/2020 [facility] Primary Problem Active 2020-03-19 02:45:15 Jax Sims Stress incontinence of urine S tress incontinence of urine Active Diagnosis 03/19/2020 [facility] Primary Diagnosis Active 2020-03-19 02:45:15 Jax Sims Other insomnia Othe r insomnia Active Problem 03/19/2020 [facility] Primary Problem Active 2020-03-19 02:45:15 Jax Sims Generalized abdominal pain Gen eralized abdominal pain Active Problem 03/19/2020 [facility] Primary Problem Active 2020-03-19 02:45:15 Jax Sims Renal calculus, right Ketty l calculus, right Active Problem 03/19/2020 [facility] Primary Problem Active 2020-03-19 02: 45:15 Jax Sims Fatty liver Fatt y liver Active Problem 03/19/2020 [facility] Primary Problem Active 2020-03-19 02:45:15 Jax Sims Breast cancer screening [facility] cancer screening Active Diagnosis 09/27/2018 [facility] Primary Diagnosis Active 2018-09-27 03:45:33 Jax Sims Varicose veins of right lower extremity with pain Varicose veins of right lower extremity with pain Active Diagnosis 03/19/2020 [facility] Primary Diagnosis Active 2020-03-19 02:45:15 Jax Sims Neuropathy Neur opathy Active Diagnosis 03/19/2020 [facility] Primary Diagnosis Active 2020-03-19 02:45:15 Jax Sims Dizziness Dizz iness Active Diagnosis 04/23/2019 [facility] Primary Diagnosis Active 2019-04-23 02:45:40 Jax Sims Allergies, Adverse Reactions, Alerts Allergy Name Allergy Type Status Severity Reaction(s) Onset Date Inacti ve Date Treating Clinician Comments Source PNC PNC Active Info Not Available 2020-03-18 00:00:00 Jax Sims Nitrofurantoin Macrocrystal Propensity to adverse reactions to drug Active Hives 2018-02-12 00:00:00 Jalen Baez Levofloxacin Allergy to substance Active Moderate 2017-06-15 00:00 :00 [facility] Penicillins Propensity to adverse reactions to drug Active Hives 2016-06-07 00:00:00 Jalen Ayalais t Sulfa (Sulfonamide Antibiotics) Propensity to adverse reactions to drug Active Hives 2016-06-07 00:00:00 [place] [facility] Penicillin Allergy to substance Active Severe 2008-05-07 00:00:00 [facility] Sulfa (Sulfonamide Antibiotics) Allergy to substance Active Sever e 2008-05-07 00:00:00 [facility] Hydrocodone Allergy to substance Active Mild 2008-05-07 00:00:00 [facility] Acetaminophen Allergy to substance Active Mild 2008-05-07 00:00: 00 [facility] Nitrofurantoin Allergy to substance Active Severe 2008-05-07 00:00 :00 [facility] Macrodantin Allergy to drug (finding) Active [facility] Penicillins Allergy to drug (finding) Active [facility] sulfa Allergy to drug (finding) Active [facility] Social History Social Habit Start Date Stop Date Quantity Comments Source Sex Assigned At [place] jalloh Confucianist Exposure to SARS-CoV-2 (event) Not sure Jalen Baez Alcohol intake 2020-01-31 00:00:00 2020-01-31 00:00:00 Current drinker of alcohol (finding) Jalen Baez Alcohol Comment 2016-08-09 00:00:00 2016-08-09 00:00:00 occasional Jalen Baez Smoking Status Start Date Stop Date Source Never smoker Jalen grady Medications Ordered Medication Name Filled Medication Name Start Date Stop Da te Current Medication? Ordering Clinician Indication Dosage Frequency Signature (SIG) Comments Components Source Levothyroxine Sodium 2020-03-19 02:45:15 Yes Anju Morelos [address] [facility] Bentyl 2020-03-19 02:45:15 Yes Anju Morelos [address] [facility] Calcium & Magnesium Carbonates 2020-03-19 02:45:15 Yes W sona Jethro not defined [facility] Vitamin E 2020-03-19 02:45:15 Yes Anju Morelos [address] [facility] Losartan Potassium 2020-03-19 02:45:15 Yes Anju Morelos 1 tablet [facility] Flexeril 2020-03-19 02:45:15 Yes Anju Morelos 1 t ablet as needed [facility] Levi B Complete 2020-03-19 02:45:15 Yes Anju Morelos n ot defined [facility] Rosuvastatin Calcium 2020-03-19 02:45:15 Yes Anjucindy Morelos 1 tablet [facility] Pantoprazole Sodium 2020-03-19 02:45:15 Yes Anjulisa Morelos 1 tablet [facility] Aleve 2020-03-19 02:45:15 Yes Anju Jethro 1 tablet with food or milk as needed [facility] Lidocaine HCl 2020-03-19 02:45:15 Yes Anju Jethro as directed [facility] cyclobenzaprine (FLEXERIL) 10 mg tablet 2020-01-31 10:32:33 Yes 20mg Take 20 mg by mouth as needed for muscle spasms. Jalen Baez MULTIVITAMIN ORAL 2020-01-31 10:32:33 Yes QD Take by mouth daily. Jalen Baez GLUCOSAMINE HCL/CHONDR GRAHAM A NA (OSTEO BI-FLEX ORAL) 01-30 10:32:33 Yes 1{tbl} QD Take 1 tablet by mouth daily. Jalen Baez TURMERIC (CURCUMIN MISC) 2020-01-31 10:32:33 Yes 500mg QD 500 mg daily. Jalen Baez rc-0-lev-epa-fish oil-vit D3 (FISH OIL-V IT D3) 300-1,000-1,000 mg-mg-unit capsule 2020-01-31 10:32:33 Yes 1{tbl} QD Letitia e 1 tablet by mouth daily. Jalen Baez dicyclomine (BENTYL) 10 MG capsule 2020-01-31 10:32:33 Yes 10mg QD Take 10 mg by mouth daily. Jalen Baez diphenoxylate-atropine (LOMOTIL) 2.5-0.025 mg per tablet 2020-01-31 10:32:33 Yes 1{tbl} Take 1 tablet by mouth as needed for diarrhea. Jalen Baez magnesium oxide (MAG-OX) 400 mg tablet 2020-01-31 10:32:33 Yes 400mg QD Take 400 mg by mouth daily. Jalen adan vit B2/niacin/B6/B12/dexpanth (B COMPLEX SL) 2020-01-31 10:32:[address] under the tongue daily. Guillermo Baez alpha tocopherol (VITAMIN E) 400 unit capsule capsule 2020-01-31 10:32:33 Yes 1{capsule} QD Take 1 capsule by mouth daily. Jalen Baez lidocaine HCl (ASPERCREME, LIDOCAINE,) 4 % cream 2020-01-31 10:32:33 Yes QD Apply topically nightly. Knee pain Jalen Baez rosuvastatin (CRESTOR) 20 MG tablet 2020-01-31 10:32:33 Yes 20mg QD Take 20 mg by mouth daily. Jalen Baez latanoprost (XALATAN) 0.005 % ophthalmic solution 2020-01-31 10:32:33 Yes 1[drp] QD Administer 1 drop to both eyes nightly. Jalen Baez aspirin (ECOTRIN) 81 MG enteric coated tablet 2020-01-31 10:32:3 3 Yes 81mg QD Take 81 mg by mouth daily. Annabelle Baez Oxybutynin Chloride ER 2020-01-30 02:45:15 Yes Anju Jethro [address] [facility] Levothyroxine Sodium 2020-01-30 02:45:15 Yes Anju Jethro [address] [facility] Myrbetriq 2020-01-29 00:00:00 Yes Anju Jethro [address] [facility] Lidocaine HCl 2020-01-29 00:00:00 Yes Anju Jethro as directed [facility] Tramadol HCl 2020-01-29 00:00:00 Yes Anju Jethro [address] [facility] traMADol HCl - 50 MG Oral Tablet traMADol HCl - 50 MG Oral T ablet 2019-12-23 00:00:00 Yes AIYANA Malik LETITIA E 1 TABLET EVERY 4 TO 6 HOURS NEEDED FOR PAIN.DO NOT EXCEED 300MG/DAY. [facility] traMADol HCl - 50 MG Oral Tablet traMADol HCl - 50 MG Oral T ablet 2019-11-22 00:00:00 Yes DUNG Malik Q8H TAKE 1 TABLET EVERY 8 HOURS NEEDED. [facility] HYDROcodone-Acetaminophen 7.5-325 MG Oral Tablet HYDRO codone-Acetaminophen 7.5- 325 MG Oral Tablet 2019-10-28 00:00:00 Yes PARAMJIT HUTSON M.D. TAKE 1 TABLET EVERY 4 TO 6 HOURS NEEDED FOR PAIN.DO NOT EXCEED 3000MG TOTAL ACETMINOPHEN/DAY FROM ALL SOURCES. MDD:9 TABS [facility] Trazodone HCl 2019-09-12 00:00:00 Yes Anju Jethro 1 tablet at bedtime as needed [facility] Pregabalin 2019-09-02 00:00:00 Yes Anju Jethro [address] [facility] Oxybutynin Chloride ER 2019-07-16 00:00:00 Yes Anju Jethro [address] [facility] Meclizine HCl 2019-04-22 00:00:00 Yes Ajnu Jethro [address] [facility] Meloxicam 2019-04-22 00:00:00 Yes Anju Jethro [address] [facility] Gabapentin 2019-01-18 02:45:19 Yes Anju Jethro [address] [facility] Pantoprazole Sodium 2018-08-06 00:00:00 Yes Anju Jethro [address] [facility] Gabapentin 2018-07-05 03:45:39 Yes Anju Jethro [address] [facility] Oxybutynin Chloride ER 2018-07-02 00:00:00 Yes Anju Jethro [address] [facility] Trazodone HCl 2018-05-07 00:00:00 Yes Anju Jethro 1 tablet at bedtime as needed [facility] Oxybutynin Chloride ER 2018-05-07 00:00:00 Yes Anju Jethro [address] [facility] Rosuvastatin Calcium 2018-05-03 02:46:04 Yes Anju Jethro [address] [facility] losartan (COZAAR) 25 MG tablet 2018-03-21 00:00:00 Yes Essential hypertension TAKE ONE TABLET BY MOUTH ONCE DAILY Jalen Baez levothyroxine (SYNTHROID, LEVOXYL) 88 mcg tablet 2018-02-15 00:00:00 Yes Acquired hypothyroidism 88ug QD Take 1 tablet (8 8 mcg total) by mouth every morning. Jalen Baez Dicyclomine Hcl Dicyclomine Hcl Yes 1 Three Ti mes A Day [facility] Diphenoxylate Hcl/Atropine (Lomotil Tablet) 1 Each TAB LET Diphenoxylate Hcl/Atropine (Lomotil Tablet) 1 Each TABLET Yes 1 Three Times A Day [facility] Levothyroxine Sodium (Tirosint) 100 Mcg CAPSULE Levoth yroxine Sodium (Tirosint) 100 Mcg CAPSULE Yes 1 Daily [facility] Losartan Potassium (Cozaar) 25 Mg TABLET Losartan Pota ssium (Cozaar) 25 Mg TABLET Yes 1 Daily [facility] Oxybutynin Chloride TABS Oxybutynin Chloride TABS Yes [facility] Levothyroxine Sodium TABS Levothyroxine Sodium TABS Yes [facility] Crestor TABS Crestor TABS Yes [facility] Pantoprazole Sodium TBEC Pantoprazole Sodium TBEC Yes [facility] Losartan Potassium TABS Losartan Potassium TABS Yes [facility] Aleve CAPS Aleve CAPS Yes [facility] Bentyl TABS Bentyl TABS Yes [facility] Flexeril TABS Flexeril TABS Yes [facility] Vitamin B Complex TABS Vitamin B Complex TABS Yes [facility] Vitamin E TABS Vitamin E TABS Yes [facility] Calcium TABS Calcium TABS Yes [facility] Alosetron Hcl (Lotronex) 0.5 Mg TAB Alosetron Hcl (Lotronex) 0.5 Mg TAB 2015-08-30 00:00:00 No 1 Daily [facility] Vital Signs Vital Name Observation Time Observation Value Comments Source Weight 2020-03-24 23:31:00 132 [lb_av] [facility] BMI (Body Mass Index) 2020-03-24 23:31:00 23.4 kg/m2 [facility] Weight 2020-03-18 16:00:00 [facility] [place] Height 2020-03-18 16:00:00 [facility] Levi Temperature Oral (F) 2020-03-18 16:00:00 97.0 F [facility] Heart Rate 2020-03-18 16:00:00 Jax Sims Diastolic (mm Hg) 2020-03-18 16:00:00 Ramon Sims Systolic (mm Hg) 2020-03-18 16:00:00 Dariel Sims Systolic blood pressure 2020-01-31 10:31:00 114 mm[Hg] Jalen Baez Diastolic blood pressure 2020-01-31 10:31:00 55 mm[Hg] Jalen Confucianist Heart rate 2020-01-31 10:31:00 76 /min Jalen Baez Body height 2020-01-31 10:31:00 160 cm Jalen Baez Body weight 2020-01-31 10:31:00 62.596 kg Jalen Baez BMI 2020-01-31 10:31:00 24.45 kg/m2 Jalen Baez Oxygen saturation in Arterial blood by Pulse oximetry 01-30 10:31:00 98 /min Jalen Confucianist Weight 2020-01-29 16:00:00 [facility] [place] Height 2020-01-29 16:00:00 [facility] [place] Temperature Oral (F) 2020-01-29 16:00:00 97.5 F [facility] [place] Heart Rate 2020-01-29 16:00:00 [facility] [place] Diastolic (mm Hg) 2020-01-29 16:00:00 Mem orial [place] Systolic (mm Hg) 2020-01-29 16:00:00 Dariel rial [place] Weight 2019-10-29 16:30:00 [facility] [place] Height 2019-10-29 16:30:00 [facility] [place] Temperature Oral (F) 2019-10-29 16:30:00 97.4 F [facility] [place] Heart Rate 2019-10-29 16:30:00 [facility] [place] Diastolic (mm Hg) 2019-10-29 16:30:00 Mem orial [place] Systolic (mm Hg) 2019-10-29 16:30:00 Dariel rial [place] Weight 2019-09-12 16:00:00 [facility] [place] Height 2019-09-12 16:00:00 [facility] [place] Temperature Oral (F) 2019-09-12 16:00:00 98.2 F [facility] [place] Heart Rate 2019-09-12 16:00:00 [facility] [place] Diastolic (mm Hg) 2019-09-12 16:00:00 Mem orial [place] Systolic (mm Hg) 2019-09-12 16:00:00 Dariel rial [place] Weight 2019-04-22 18:00:00 [facility] [place] Height 2019-04-22 18:00:00 [facility] [place] Temperature Oral (F) 2019-04-22 18:00:00 98.0 F [facility] [place] Heart Rate 2019-04-22 18:00:00 [facility] [place] Diastolic (mm Hg) 2019-04-22 18:00:00 Mem orial [place] Systolic (mm Hg) 2019-04-22 18:00:00 Dariel rial [place] Weight 2019-01-17 14:15:00 [facility] [place] Height 2019-01-17 14:15:00 [facility] [place] Temperature Oral (F) 2019-01-17 14:15:00 97.4 F [facility] [place] Heart Rate 2019-01-17 14:15:00 [facility] [place] Diastolic (mm Hg) 2019-01-17 14:15:00 Mem orial [place] Systolic (mm Hg) 2019-01-17 14:15:00 Dariel rial [place] Weight 2018-09-26 17:00:00 [facility] [place] Height 2018-09-26 17:00:00 [facility] [place] Temperature Oral (F) 2018-09-26 17:00:00 97.7 F [facility] [place] Heart Rate 2018-09-26 17:00:00 [facility] [place] Diastolic (mm Hg) 2018-09-26 17:00:00 Mem orial [place] Systolic (mm Hg) 2018-09-26 17:00:00 Dariel rial [place] Weight 2018-08-06 15:45:00 [facility] [place] Height 2018-08-06 15:45:00 [facility] [place] Temperature Oral (F) 2018-08-06 15:45:00 98.4 F [facility] [place] Heart Rate 2018-08-06 15:45:00 [facility] [place] Diastolic (mm Hg) 2018-08-06 15:45:00 Mem orial [place] Systolic (mm Hg) 2018-08-06 15:45:00 Dariel rial [place] Weight 2018-07-04 21:45:00 [facility] [place] Height 2018-07-04 21:45:00 [facility] [place] Temperature Oral (F) 2018-07-04 21:45:00 97.9 F [facility] [place] Heart Rate 2018-07-04 21:45:00 [facility] [place] Diastolic (mm Hg) 2018-07-04 21:45:00 Mem orial [place] Systolic (mm Hg) 2018-07-04 21:45:00 Dariel rial [place] Weight 2018-07-02 16:15:00 [facility] [place] Height 2018-07-02 16:15:00 [facility] [place] Temperature Oral (F) 2018-07-02 16:15:00 97.7 F [facility] [place] Heart Rate 2018-07-02 16:15:00 [facility] [place] Diastolic (mm Hg) 2018-07-02 16:15:00 Mem [facility] [place] Systolic (mm Hg) 2018-07-02 16:15:00 Dariel rial [place] Weight 2018-05-07 14:45:00 [facility] [place] Height 2018-05-07 14:45:00 [facility] [place] Temperature Oral (F) 2018-05-07 14:45:00 98.2 F [facility] [place] Heart Rate 2018-05-07 14:45:00 [facility] [place] Diastolic (mm Hg) 2018-05-07 14:45:00 Mem orial [place] Systolic (mm Hg) 2018-05-07 14:45:00 Dariel rial [place] Weight 2018-05-02 15:00:00 [facility] [place] Height 2018-05-02 15:00:00 [facility] Temperature Oral (F) 2018-05-02 15:00:00 97.2 F [facility] Heart Rate 2018-05-02 15:00:00 [facility] [place] Diastolic (mm Hg) 2018-05-02 15:00:00 Mem [facility] [place] Systolic (mm Hg) 2018-05-02 15:00:00 Dariel rial [place] Procedures Procedure Date / Time Performed Performing Clinician [facility] e Computed tomography of brain without radiopaque contrast 2020-02 00:00:00 [facility] Computed tomography of cervical spine without contrast 2020-02-27 8 00:00:00 [facility] CT maxillofacial area wo contrast 2020-03-24 00:00:00 [facility] US CAROTID DUPLEX BILATERAL 2020-03-03 14:00:00 Jorge Schmidt Confucianist ECG 12-LEAD 2020-01-31 10:38:17 Jorge Schmidt Met hodist Post Op Promis 29 Survey 2019-11-14 00:00:00 [facility] XRAY KNEE 3 VWS RIGHT [id number] 2019-10-25 00:00:00 [facility] Initial Promis 29 Survey 2019-10-21 00:00:00 [facility] CVRAD - MAYA - [id number] 2019-10-03 00:00:00 [facility] ECG 12-LEAD 2019-06-13 11:15:11 Jorge Schmidt hodist History of Thyroid Surgery [facility] History of Hysterectomy [facility] History of Bladder Surgery [facility] History of Back surgery [facility] History of Hernia Repair [facility] Plan of Care Planned Activity Planned Date Details Comments Source Future Scheduled Test 2020-03-28 00:00:00 INFLUENZA VACCINE [code = INFLUENZA VACCINE] [facility] Diagnostic Test Pending 2019-11-04 00:00:00 Initial Promis 2 9 Survey [code = Initial Promis 29 Survey] [facility] ns Future Scheduled Test 1997 00:00:00 65+ PNEUMOCOCCAL V ACCINE (1 of 2 - PCV13) [code = 65+ PNEUMOCOCCAL VACCINE (1 of 2 - PCV13)] [facility] Future Scheduled Test 1982 00:00:00 SHINGLES VACCINES (#1) [code = SHINGLES VACCINES (#1)] [facility] Future Scheduled Test 1942 00:00:00 DIABETIC FOOT EXAM [code = DIABETIC FOOT EXAM] [facility] Future Scheduled Test 1942 00:00:00 URINE MICROALBUMIN [code = URINE MICROALBUMIN] [facility] Future Scheduled Test 1932 00:00:00 DIABETIC RETINAL E YE EXAM [code = DIABETIC RETINAL EYE EXAM] [facility] Instructions Abrasion [facility] Instructions Contusion [facility] Instructions Laceration [facility] Encounters Start Date/Time End Date/Time Encounter Type Admission Type Attendi [facility] Facility Care Department Encounter ID Source 2020-03-24 23:20:00 2020-03-25 01:24:00 Departed Emergency Room 1 LORE CORONADO [facility] [id number] [facility] 2020-03-18 11:00:00 2020-03-18 11:00:00 Outpatient [facility] Care [facility] [id number] eClinicalWo rks 2020 15:36:00 2020 15:36:00 Outpatient [facility] [id number] eClinicalWo rks 2020-03-03 00:00:00 2020-03-03 00:00:00 Outpatient MARCIAL SCHMIDT [facility] [id number] Rao Confucianist 2020-01-31 00:00:00 2020-01-31 00:00:00 Outpatient MARCIAL SCHMIDT [facility] [id number] Rao Confucianist 2020-01-29 11:00:00 2020-01-29 11:00:00 Outpatient [facility] Primary Care [facility] [id number] eClinicalWo rks 2019-12-18 10:45:00 2019-12-18 10:45:00 Appointment; DELVIN HUTSON M.D. MATHIS, KENNETH, M.D. [facility] [id number] [facility] 2019-11-15 11:30:00 2019-11-15 11:30:00 Appointment; CELINE POLLACK P.A. HAWKS, CHRISTOPHER, P.A. [facility] Orthopedics [facility] [id number] [facility] 2019-11-04 13:33:00 2019-11-04 13:33:00 Outpatient [id number] 2019-11-04 09:00:00 2019-11-04 09:00:00 Appointment; DELVIN HUTSON M.D. MATHIS, KENNETH, M.D. [facility] [id number] [facility] 2019-10-29 10:30:00 2019-10-29 10:30:00 Outpatient [facility] Primary Care [facility] Primary [facility] [id number] eClinicalWo rks 2019-10-03 10:00:00 2019-10-03 10:00:00 Appointment; VASCULAR, [facility] [facility] Thoracic Surgery [facility] [id number] [facility] 2019-10-03 09:00:00 2019-10-03 09:00:00 Appointment; JAVIER OCHOA M.D. SAQIB, NAVEED, M.D. [facility] Thoracic Surgery [facility] [id number] [facility] 2019-09-12 10:00:00 2019-09-12 10:00:00 Outpatient [facility] [id number] eClinicalWo rks 2019-08-15 08:34:00 2019-08-15 08:34:00 Outpatient [facility] 2019-04-25 12:30:00 2019-04-25 12:30:00 Appointment; DELVIN HUTSON M.D. MATHIS, KENNETH, M.D. [facility] Orthopedics at [facility] [id number] [facility] 2019-04-22 13:00:00 2019-04-22 13:00:00 Outpatient [facility] [id number] eClinicalWo rks 2019-01-17 09:15:00 2019-01-17 09:15:00 Outpatient [facility] [id number] eClinicalWo rks 2018-09-26 11:00:00 2018-09-26 11:00:00 Outpatient [facility] [id number] eClinicalWo rks 2018-08-06 09:45:00 2018-08-06 09:45:00 Outpatient [facility] [id number] eClinicalWo rks 2018-07-04 15:45:00 2018-07-04 15:45:00 Outpatient [facility] [id number] eClinicalWo rks 2018-07-02 10:15:00 2018-07-02 10:15:00 Outpatient [facility] [id number] eClinicalWo rks 2018-05-07 09:45:00 2018-05-07 09:45:00 Outpatient [facility] [id number] eClinicalWo rks 2018-05-02 10:00:00 2018-05-02 10:00:00 Outpatient [facility] [id number] eClinicalWo rks Results Test Description Test Time Test Comments Results Result Comments Source KNEE RIGHT THREE VIEWS 2020-03-25 01:04:00 [facility] [address] [id number] Patient Name: SLICK JENSEN MR #: [id number] : 1930 Age/Sex: 89/F Req #: [id number] Adm Physician: Ordered by: LORE CORONADO MD Report #: [id number] Location: ER Room/Bed: Procedure: [id number] DX/KNEE RIGHT THREE VIEWS Exam Date: 03/24/20 Exam Time: 2340 REPORT STATUS: Signed X-ray right knee 3 views HISTORY: Pain. Fall COMPARISON: None available. FINDINGS: Bones: No acute displaced fracture. Osseous alignment is within normal limits. Total right knee metallic arthroplasty hardware intact. Joints: The joint spaces are well-maintained. Soft tissues: Mild subcutaneous edema about the knee. Vascular calcifications. IMPRESSION: No acute radiographic osseous abnormality. Mild subcutaneous edema about the knee. Total right knee metallic arthroplasty hardware intact. Signed by: Edvin Rivera DO on 03/25/2020 1:06 AM Dictated By: EDVIN RIVERA DO 5 Transcribed By: ADRIANO on 03/25/20105 COPY TO: LORE CORONADO MD CT CERVICAL SPINE WO 2020-03-25 00:19:[address] [address] Patient Name: SLICK JENSEN MR #: [id number] : 1930 Age/Sex: 89/F Req #: [id number] Adm Physician: Ordered by: LORE CORONADO MD Report #: [id number] Location: ER Room/Bed: Procedure: [id number] CT/CT CERVICAL SPINE WO Exam Date: 03/24/20 Exam Time: 2339 REPORT STATUS: Signed EXAMINATION: CT of the cervical spine HISTORY: Status post fall, pain COMPARISON: None available TECHNIQUE: Multidetector helical axial images were obtained without contrast from the foramen magnum to T1. The images were reconstructed using bone and soft tissue algorithms and were viewed in axial, sagittal and coronal planes. Dose modulation, iterative reconstruction, and/or weight based adjustment of the mA/kV was utilized to reduce the radiation dose to as low as reasonably achievable. FINDINGS: Alignment: Normal alignment and lordosis Soft tissues: Normal Vertebrae: Normal height and density. No acute fracture, infection or neoplasm Degenerative changes: C1-C2: Ossification of the atlantodental ligaments, no significant stenosis. C2-C3: Bilateral facet arthrosis C3-C4: Prominent facet arthrosis mainly on the left. Moderate left foraminal stenosis. C4-C5: Prominent facet arthrosis and mild uncovertebral arthrosis on the left. Moderate left foraminal stenosis. C5-C6: Disc osteophyte complex formation, bilateral uncovertebral and facet arthrosis worse on the left. Moderate right and severe left foraminal stenosis minimal canal narrowing. C6-C7: Fusion of the posterior elements on the left. No significant canal or foraminal stenosis. C7-T1: Fusion of the posterior elements of the lumbar. No significant stenosis. IMPRESSION: 1. No acute cervical spine postraumatic abnormalities. 2. Multilevel chronic degenerative changes of the tube above. Note: Acute postraumatic spinal cord, vascular or ligamentous injuries cannot adequately be assessed by CT. Signed by: Dr. Bryson Rosario M.D. on 03/25/2020 12:23 AM Dictated By: BRYSON ROSARIO MD Transcribed By: ADRIANO on 03/25/2022 COPY TO: LORE CORONADO MD CT MAXIO FAC/PARANAS WO 2020-03-25 00:09:00 [address] [address] Patient Name: SLICK JENSEN MR #: [id number] : 1930 Age/Sex: 89/F Req #: [id number] Adm Physician: Ordered by: LORE CORONADO MD Report #: [id number] Location: ER Room/Bed: Procedure: [id number] CT/CT MAXIO FAC/PARANAS WO Exam Date: 03/24/20 Exam Time: 2340 REPORT STATUS: Signed EXAMINATION: CT of the face HISTORY: Status post fall, facial trauma, pain. COMPARISON: None available TECHNIQUE: Multidetector helical axial images were acquired through the face without contrast and were reconstructed in bone and soft tissue algorithms. Images were viewed in multiplanar format. Dose modulation, iterative reconstruction, and/or weight based adjustment of the mA/kV was utilized to reduce the radiation dose to as low as reasonably achievable. FINDINGS: Bones: No acute displaced fractures Facial soft tissues: Mild right forehead soft tissue swelling Paranasal sinuses and drainage pathways: The frontal, ethmoidal, sphenoid and maxillary sinuses are clear. The ostiomeatal units, fronto-nasal and spheno-ethmoidal recesses are clear. Orbits contents: Small calcifications in the lateral aspect of both globes may represent senile scleral calcifications. Nasal septum: Midline. Anatomic variations: No significant anatomic variations. Dentition: No acute abnormality of the visualized teeth. IMPRESSION: No acute facial fractures. Signed by: Dr. Bryson Rosario M.D. on 03/25/2020 12:17 AM Dictated By: BRYSON ROSARIO MD Transcribed By: ADRIANO on 03/25/2016 COPY TO: LORE CORONADO MD CT BRAIN WO 2020-03-24 23:55:00 [id number] [address] Patient Name: SLICK JENSEN MR #: [id number] : 1930 Age/Sex: 89/F Req #: [id number] Adm Physician: Ordered by: LORE CORONADO MD Report #: [id number] Location: ER Room/Bed: Procedure: [id number] CT/CT BRAIN WO Exam Date: 03/24/20 Exam Time: 2340 REPORT STATUS: Signed EXAMINATION: Head CT HISTORY: Status post fall, trauma, pain COMPARISON: None. TECHNIQUE: Helical axial images of the head were obtained. Reformatted coronal and sagittal images from the axial data. Dose modulation, iterative reconstruction, and/or weight based adjustment of the mA/kV was utilized to reduce the radiation dose to as low as reasonably achievable. Image quality: Motion/streaking artifact limits the evaluation of the skull base and posterior cranial fossa. FINDINGS: Parenchyma: 1. Mild periventricular white matter hypodensities, most nonspecific chronic microvascular ischemic changes. 2. No mass or hemorr modesto. No CT evidence of acute territorial vascular insult. Extra-axial spaces:No abnormal density. No extra-axial fluid collections Brain volume: Normal for age. Ventricles: No hydrocephalus or displacement. Arteries: No density suggestive of thrombus. Dural sinuses: No abnormal density. Foramen magnum: No mass, Chiari malformation, or basilar invagination. Sella: No obvious mass. Paranasal/mastoid sinuses: Imaged portions unremarkable. Skull/Scalp: No lytic or blastic lesions. Minimal right forehead soft tissue swelling, no underlying fractures. Partially visualized radiopaque densities in the bilateral lateral globes. IMPRESSION: 1. No acute post traumatic intracranial abnormality, particularly no hemorrhage. 2. Mild white matter chronic microvascular ischemic changes. 3. Minimal right forehead soft tissue swelling without underlying fractures Signed by: Dr. Bryson Rosario M.D. on 03/25/2020 12:01 AM Dictated By: BRYSON ROSARIO MD 39 Transcribed By: ADRIANO on 03/25/20 0001 COPY TO: LORE CORONADO MD Us carotid duplex 2020-03-03 14:34:00 Interface, Radiology Results In - 03/03/2020 2:35 PM CDT [facility] Carotid Artery Duplex Report [id number] [place] [address] For quality officer purposes, the categorization of the degree of the stenosis of this exam is based on criteria described in the IAC carotid stenosis grading white paper( www.intersocietal.org/Vascular) and Yossi Liz, Kimberlee Lang, et al. Carotid artery stenosis: rock-scale and Doppler US diagnosis--Society of Radiologists in Ultrasound Consensus Conference. Radiology. 2003 Nov; 229(2):340-6. Pat.Name: SLICK JENSEN Pat.ID: [id number] .Date: 03/03/2020 Refer.MD: JORGE SCHMIDT MD Exam Time: 1:06:00 PM Study Type:Carotid Height: 64in Weight: 138lb BSA: 1.67 m2 Age: 7 1930,89Y Sex: FEMALE Sonogrphr: MARIO Franco Pat. Stat.:Outpatient Tape Vol: ML, CPT - 4: 07945 Echo Event ID:[id number] Order ID: [id number] Reason for Study:Carotid artery disease. History of hypertension.Procedures: Colorflow, Grayscale/2D, Pulsed wave DopplerRace: SUMMARY: PHYSICAL ASSESSMENT Blood Pressure Right 102/54 Left 107/52 CAROTID ARTERY SCANRIGHT: There is smooth intimal lining in the common carotid artery.There is hard and calcified plaque noted in the bulb extending intothe proximal internal and external carotid artery. Colorflow isdisturbed with elevated velocities noted in the proximal and midinternal carotid arteries. LEFT: There is smooth intimal lining in the common carotid artery.There is hard and calcified plaque noted in the bulb extending intothe proximal internal and external carotid artery. Colorflow isdisturbed with elevated velocities noted in the proximal internalcarotid arteries. PRELIMINARY FINDINGS1. 50-69% stenosis in the right internal carotid artery.2. <50% stenosis in the left internal carotid and bilateral externalcarotid arteries.3. Antegrade flow in the bilateral vertebral arteries.4. Triphasic Doppler waveforms in the bilateral subclavian arteries.PHYSICIAN INTERPRETATION Bilateral carotid duplex examination demonstrated atheroscleroticplaques in the bulbs. 50-69% stenosis in the right internal carotid artery. <50% stenosis in the left internal carotid and bilateral externalcarotid arteries.Both vertebral arteries are antegra de. FINDINGS: ----Carotid Findings: Right Left Verteb.Flw Antegrade Antegrade Subclavian Triphasic Triphasic MEASUREMENTS: ----- DOPPLERLeft CCA Dist CCA Dist PSV 94.4 cm/s CCA Dist EDV 14.7 cm/sLeft CCA Mid CCA Mid PSV 110 cm/s CCA Mid EDV 18.2 cm/sLeft CCA Prox CCA Prox PSV 121 cm/s CCA Prox EDV 21.7 cm/sLeft ICA Dist ICA Dist PSV 94.2 cm/s ICA Dist EDV 26.1 cm/sLeft ICA Mid ICA Mid PSV 112 cm/s ICA Mid EDV 24.4 cm/sLeft ICA Prox ICA Prox PSV 159 cm/s ICA Prox ICA Prox EDV 30 cm/s ICA Prox EDV 31 cm/s ICA Prox PSV 242 cm/s Left ECA Prox ECA Prox PSV 145 cm/s ECA Prox EDV 7.86 cm/sLeft SCA Prox SCA Prox PSV 166 cm/s Left Vertebral Vertebral PSV 57.4 cm/s Vertebral EDV 14.1 cm/sRight CCA Dist CCA Dist PSV 80.5 cm/s CCA Dist EDV 16.9 cm/sRight CCA Mid CCA Mid PSV 80.1 cm/s CCA Mid EDV 16.5 cm/sRight CCA Prox CCA Prox PSV 89.7 cm/s CCA Prox EDV 17 cm/Cynthia Dist ICA Dist PSV 84 cm/s Right ICA Dist ICA Dist EDV 27.6 cm/s Right ICA Mid ICA Mid PSV 142 cm/s ICA Mid EDV 22.6 cm/sRight ECA Prox ECA Prox PSV 111 cm/s ECA Prox EDV 7.07 cm/sSCA Prox SCA Prox PSV 149 cm/s Right Vertebral Vertebral PSV 61.3 cm/s Vertebral EDV 12.2 cm/Cynthia/CCA Ratio ICA/CCA PSV 3.02 Left ICA/CCA Ratio ICA/CCA PSV 1.45 Signed 03/03/2020 02:34 PMRafael Guerrero MD, RPVI Jalen Baez ECG 12 lead 2020-01-31 17:13:54 Test Item Ventricular rate (test code = 253) 74 Atrial rate (test code = 255) 74 CT interval (test code = 266) 130 QRSD interval (test code = 260) 82 QT interval (test code = 264) 384 QTC interval (test code = 265) 426 P axis 1 (test code = 267) 79 QRS axis 1 (test code = 268) 76 T wave axis (test code = 270) 66 EKG impression (test code = 273) Normal sinus rhythm-N ormal ECG-In automated comparison with ECG of 13-JUN-2019 11:15,-Questionable change in QRS axis- Rao Confucianist[U] XRAY KNEE 3 VWS RIGHT [id number] 12:12:00Images acquired, not reported on this accession number.[facility] SCR MAMM BILATERAL BOLIVAR CAD [id number] 13:14:36 - SCR MAMM BILATERAL BOLIVAR CAD DIGITALBILATERAL DIGITAL SCREENING MAMMOGRAM 3D/2D WITH CAD: 11/02/2018CLINICAL: Asymptomatic. Digital breast tomosynthesis was performed in addition to routine CC and MLO views. Current mammographic images were evaluated by either a [employer] M-Vu or a [employer] ImageChecker CAD (computer aided detection system). Comparison is made to exams dated 10/04/2016 mammogram, mammogram, 03/14/2014 mammogram, 02/04/2013 mammogram, and 02/03/2012 mammog [facility] - [facility]. The tissue of both breasts is heterogeneously dense. This may lower the sensitivity of mammography. There are benign vascula r calcifications in both breasts. There also is a biopsy clip in the right [address]. No suspicious mass, architectural distortion, malignant type calcification, or lymph node abnormality detected. Breast architecture is stable compared to prior exams.IMPRESSION: BENIGNThere is no mammographic evidence of malignancy. R esume annual screening mammography in one year. Jessica Johnson M.D. dm/ penrad:11/06/2018 13:14:36 Molasses Preparer: Nehal Cuevas FW RT(M), [facility] sent: BIRADS 1-2 Normal Mammogram BI-RADS: 2 BenignCT ABDOMEN/PELVIS W [address] [place] [address] Patient Name: SLICK JENSEN MR #: [id number] : 1930 Age/Sex: 87/F Req #: [id number] Adm Physician: Ordered by: MISA BARLOW MD Report #: [id number] Location: [place] Room/Bed: Procedure: [id number] CT/CT ABDOMEN/PELVIS W Exam D ate: 07/17/17 Exam Time: 1200 REPORT STATUS: Si gned PROCEDURE: CT ABDOMEN AND PELVIS WITH CONTRAST [facility] CT ABDOMEN/PELVIS W, 11/25/2012, 3:20. INDICATIONS: Lower abdominal pain. Diverticulitis. History of ventral hernia. TECHNIQUE: Routine protocol Volumetric CT abdomen and pelvis after administration o f 100 mL Isovue-370 intravenous contrast 900 mL dilute contrast. Multiplanar reformatted images. DLP: 395.94 FINDINGS: Clear lung bases. No pleural e ffusions. Normal heart size. Liver: Normal Gallbladder: Cholecystectomy. Pancreas: Mild diffuse atrophy; otherwise, normal Spleen: Normal Adre nal glands: Normal Kidneys: The normal size and contour. No hydronephrosis. Mu ltiple surgical clips adjacent to left superior pole without definitive pa rtial nephrectomy. Ureters and urinary bladder: Normal Uterus and adnexa col on hysterectomy Bowel: Normal caliber. Inconspicuous appendix. A normal de scending and sigmoid colon. Peritoneum: Normal Vasculature: Normal ca liber. Nonflow limiting atherosclerosis of the abdominal aorta and major visc eral branch vessels without flow-limiting stenosis. Very tortuous iliac arter ies. Lymph nodes: Normal Skeleton: Intact. 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 Severe bilateral facet ar thropathy. Grade 1 anterolisthesis of L3 on L4. Soft tissues: Tiny fat cont aining umbilical hernia. Left ventral abdominal wall surgical mesh consistent with remote hernia repair. CONCLUSION: 1. No acute abnormality. Spe cifically, no evidence of diverticulitis. 2. Evidence of remote ventral hernia repair without acute abnormality. Dictated by: Eddie Mccarty on 07/17/2017 at 13:08 Electronically approved by: Eddie bingham M.D. on 07/17/2017 at 13:08 Dictated By: EDDIE ENGLISH MD 1308 Transcribed By: Mukesh PANDA on 07/17/17 1308 COPY TO: MISA BARLOW MD US RENAL RETROPERITONEAL COMP [address] [place] [address] Patient Name: SLICK JENSEN MR #: [id number] : 1930 Age/Sex: 87/F Req #: [id number] Adm Physician: Ordered by: RENETTA ABEBE MD Report #: [id number] Location: US Room/Bed: Procedure: [id number] US/US RENAL RETROPERITONEAL COMP Exam Date: 06/30/17 Exam Time: 813 REPORT STA TUS: Signed PROCEDURE: US RETROPERITONEAL ( KIDNEY ). COMPARISON: CT ab domen and pelvis 04/23/2009. 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 FINDINGS: RIGHT KIDNEY: 9.6 cm, cortex 0.9 cm Cysts: 1.3 x 1.2 x 1.3 cm simple cyst. Solid masses: None. Stones: None. Hydronephrosis: None. Echogenic ity: Normal. LEFT KIDNEY: 10.2 cm, cortex of 0.2 cm Cysts: 1.9 x 0.7 x 1 .2 cm simple cyst. Solid masses: None. Stones: None. Hydronephrosis: None. Echogenicity: Normal. Bladder: Normal contour. Bilateral ureteral jets are visualized. CONCLUSION: No acute sonographic abnormality. Dictated by: Joaquin Newton M.D. on 06/30/2017 at 11:59 Electronically selin roved by: Joaquin Newton M.D. on 06/30/2017 at 11:59 Dictated By: JOAQUIN NEWTON MD 1159 T ranscribed By: ALTHEA on 06/30/17 1152 COPY TO: RENETTA ABEBE MD
== END 2020-03-25 01:24 | disposition home or self-care (01) ==
LOC: ER 23:20
DX: S01.21XA Laceration without foreign body of nose, initial encounter (principal); S80.211A Abrasion, right knee, initial encounter; W01.0XXA Fall on same level from slipping, tripping and stumbling without subsequent striking against object, initial encounter; Y93.01 Activity, walking, marching and hiking; Y92.008 Other place in unspecified non-institutional (private) residence as the place of occurrence of the external cause
CPT/HCPCS: 12011; 70450; 70486; 72125; 73562; 99283; J2001